=== PATIENT | male | born 1960 | race Caucasian/White ===

== ENCOUNTER 2020-03-15 21:10 | Emergency (ER) | payer OTHER ==
[2020-03-15] MEDS ORDERED: KETOROLAC 30 MG/ML 1 ML VIAL IVP STA (21:52)
[2020-03-15] MEDS ORDERED: SODIUM CHLORIDE 0.9% 1,000 ML IV ONE (21:53)
[2020-03-15 22:24] LABS: Basophils % (A) 1 %; Eosinophils # (A) 0.1 k/uL (0-0.7); Eosinophils % (A) 1 %; HCT 42.9 % (39.0-53.0); HGB 14.8 gm/dL (13.0-17.5); Lymphocytes # (A) 1.5 k/uL (1.0-4.8); Lymphocytes % (A) 22 %; MCH 30.8 pg (25.0-35.0); MCHC 34.5 g/dL (31.0-37.0); MCV 89.1 fL (80.0-100.0); Mean Platelet Volume 6.7; Monocytes # (A) 0.5 k/uL (0-1.0); Monocytes % (A) 8 %; Neutrophils # (A) 4.5 k/uL (1.3-7.7); Neutrophils % (A) 67 %; Platelet Count 275 k/uL (150-450); RBC 4.81 m/uL (4.30-5.90); RDW 13.3 % (11.5-15.5); WBC 6.7 k/uL (3.8-10.6)
[2020-03-15 22:31] LABS: ALT 24 U/L (4-49); AST 19 U/L (17-59); African American GFR (CKD) >90 (>60 ml/min/1.73 sqM); Albumin 4.4 g/dL (3.5-5.0); Alkaline Phosphatase 70 U/L (38-126); Anion Gap 7 mmol/L; Blood Urea Nitrogen 22 mg/dL (9-20); Calcium 10.5 mg/dL (8.4-10.2); Carbon Dioxide 24 mmol/L (22-30); Chloride 106 mmol/L (98-107); Glucose 96 mg/dL (74-99); Non-African American GFR(CKD) >90 (>60 ml/min/1.73 sqM); Potassium 3.9 mmol/L (3.5-5.1); Sodium 137 mmol/L (137-145); Total Bilirubin 0.3 mg/dL (0.2-1.3)
--- NOTE | 2020-03-16 00:25 | US ---
EXAMINATION TYPE: US venous doppler duplex UE LT DATE OF EXAM: 03/16/2020 COMPARISON: NONE CLINICAL HISTORY: Left arm swelling, pain. Left arm swelling and pain x 3 days. No hx of DVT. Patient takes aspirin. SIDE PERFORMED: Left Left Arm: There appear to be internal echoes within the non-compressible left basilic vein. There pradip ear to be some internal echoes within the lower IJV, but this vein does appear to show color flow and compress. No evidence of DVT in remaining veins imaged in the left arm at this time. IMPRESSION: There is some limited superficial vein thrombus in the left basilic vein. No evidence of deep vein th rombosis in the left arm.
[2020-03-16] MEDS ORDERED: cefTRIAXone IN SWFI 1,000 MG/10 ML SYRINGE IVP STA (00:46)
--- NOTE | 2020-03-16 00:46 | ED ---
Skin/Abscess/FB HPI - General Chief complaint: Skin/Abscess/Foreign Body Stated complaint: Arm Swelling/poss infection Time Seen by Provider: 03/15/20 21:25 Source: patient, family Mode of arrival: ambulatory Limitations: no limitations - History of Present Illness Initial comments: 59-year-old male patient presents to the emergency department today for evaluation of swelling and redness to the left arm. Patient states he was in the hospital over the weekend for ocular migraine. Patient states after discharge the area where his IV was inserted became red and hardened. Patient states that over the following 2 days the redness and swelling increased. States the area is hot to touch. Denies any fever or chills. Denies any generalized arm swelling. Patient also reports an odd pain in his chest just prior to arrival. He describes it as a "twinge" that went away almost immediately. Patient denies any recent rash, cough, shortness of breath, a bdominal pain, nausea, vomiting, diarrhea, constipation, back pain, numbness, tingling, dizziness, weakness, hematuria, dysuria, urinary urgency, urinary frequency, headache, visual changes, or any other complaints. - Related Data Previous Rx's Medication Instructions Recorded Ibuprofen [Motrin] 600 mg PO Q8HR PRN #30 tab 03/16/20 Allergies Allergy/AdvReac Type Severity Reaction Status Date / Time No Known Allergies Allergy Verified 03/15/20 21:20 Review of Systems ROS Statement: Those systems with pertinent positive or pertinent negative responses have been documented in the HPI. ROS Other: All systems not noted in ROS Statement are negative. Past Medical History Past Medical History: No Reported History History of Any Multi-Drug Resistant Organisms: None Reported Past Surgical History: No Surgical Hx Reported Past Psychological History: No Psychological Hx Reported Smoking Status: Never smoker Past Alcohol Use History: Occasional Past Drug Use History: None Reported General Exam Limitations: no limitations General appearance: alert, in no apparent distress, other (This is a well- developed, well-nourished adult male patient in no acute distress. Vital signs upon presentation are temperature 99.1F, pulse 80, respirations 20, blood pressure 169/94, pulse ox 97% on room air.) Eye exam: Present: normal appearance, PERRL, EOMI. Absent: scleral icterus, conjunctival injection, periorbital swelling ENT exam: Present: normal exam, normal oropharynx, mucous membranes moist Respiratory exam: Present: normal lung sounds bilaterally. Absent: respiratory distress, wheezes, rales, rhonchi, stridor Cardiovascular Exam: Present: regular rate, normal rhythm, normal heart sounds. Absent: systolic murmur, diastolic murmur, rubs, gallop, clicks GI/Abdominal exam: Present: soft, normal bowel sounds. Absent: distended, tenderness, guarding, rebound, rigid Extremities exam: Present: full ROM, tenderness (Left medial upper arm), normal capillary refill, other (There is erythema and soft tissue swelling over the left medial antecubital fossa extending up the medial upper arm. remainder of arm is pink, warm, dry. Cap refills less than 3 seconds. Radial pulses are 2+.). Absent: normal inspection, pedal edema, joint swelling, calf tenderness Neurological exam: Present: alert, oriented X3, CN II-XII intact Psychiatric exam: Present: normal affect, normal mood Skin exam: Present: warm, dry, intact, normal color. Absent: rash Course Vital Signs 03/15/20 21:15 Temperature 99.1 F Pulse Rate 80 Respiratory 20 Rate Blood Pressure 169/94 O2 Sat by Pulse 97 Oximetry Medical Decision Making - Medical Decision Making 59-year-old male patient presented to the emergency department today for evaluation of redness, swelling, pain to the left upper arm. Physical examination did reveal an area of erythema with soft tissue swelling noted to the left medial antecubital fossa and extending to the upper arm. He is afebrile, vital signs. Labs reviewed and revealed normal white blood cell count, normal lactic acid. Ultrasound of the left upper arm is positive for superficial venous thrombophlebitis, no evidence for DVT. Patient does already taking Keflex (started Thursday) and clindamycin (started today) from his physician. We will continue this treatment and add ibuprofen for treatment of the superficial venous thrombophlebitis. He is instructed to follow-up with his primary care physician for recheck in 1-2 days. Return parameters were discussed in detail. He verbalizes understanding and agrees with this plan. - Lab Data Result diagrams: 03/15/20 22:00 03/15/20 22:00 Lab Results 03/15/20 03/15/20 03/15/20 Range/Units 22:00 22:00 22:00 WBC 6.7 (3.8-10.6) k/uL RBC 4.81 (4.30-5.90) m/uL Hgb 14.8 (13.0-17.5) gm/dL Hct 42.9 (39.0-53.0) % MCV 89.1 (80.0-100.0) fL MCH 30.8 (25.0-35.0) pg MCHC 34.5 (31.0-37.0) g/dL RDW 13.3 (11.5-15.5) % Plt Count 275 (150-450) k/uL Neutrophils % 67 % Lymphocytes % 22 % Monocytes % 8 % Eosinophils % 1 % Basophils % 1 % Neutrophils # 4.5 (1.3-7.7) k/uL Lymphocytes # 1.5 (1.0-4.8) k/uL Monocytes # 0.5 (0-1.0) k/uL Eosinophils # 0.1 (0-0.7) k/uL Basophils # 0.0 (0-0.2) k/uL Sodium 137 (137-145) mmol/L Potassium 3.9 (3.5-5.1) mmol/L Chloride 106 (98-107) mmol/L Carbon Dioxide 24 (22-30) mmol/L Anion Gap 7 mmol/L BUN 22 H (9-20) mg/dL Creatinine 0.79 (0.66-1.25) mg/dL Est GFR (CKD-EPI)AfAm >90 (>60 ml/min/1.73 sqM) Est GFR (CKD-EPI)NonAf >90 (>60 ml/min/1.73 sqM) Glucose 96 (74-99) mg/dL Plasma Lactic Acid William 0.9 (0.7-2.0) mmol/L Calcium 10.5 H (8.4-10.2) mg/dL Total Bilirubin 0.3 (0.2-1.3) mg/dL AST 19 (17-59) U/L ALT 24 (4-49) U/L Alkaline Phosphatase 70 (38-126) U/L Troponin I (0.000-0.034) ng/mL Total Protein 7.0 (6.3-8.2) g/dL Albumin 4.4 (3.5-5.0) g/dL 03/15/20 Range/Units 22:00 WBC (3.8-10.6) k/uL RBC (4.30-5.90) m/uL Hgb (13.0-17.5) gm/dL Hct (39.0-53.0) % MCV (80.0-100.0) fL MCH (25.0-35.0) pg MCHC (31.0-37.0) g/dL RDW (11.5-15.5) % Plt Count (150-450) k/uL Neutrophils % % Lymphocytes % % Monocytes % % Eosinophils % % Basophils % % Neutrophils # (1.3-7.7) k/uL Lymphocytes # (1.0-4.8) k/uL Monocytes # (0-1.0) k/uL Eosinophils # (0-0.7) k/uL Basophils # (0-0.2) k/uL Sodium (137-145) mmol/L Potassium (3.5-5.1) mmol/L Chloride (98-107) mmol/L Carbon Dioxide (22-30) mmol/L Anion Gap mmol/L BUN (9-20) mg/dL Creatinine (0.66-1.25) mg/dL Est GFR (CKD-EPI)AfAm (>60 ml/min/1.73 sqM) Est GFR (CKD-EPI)NonAf (>60 ml/min/1.73 sqM) Glucose (74-99) mg/dL Plasma Lactic Acid William (0.7-2.0) mmol/L Calcium (8.4-10.2) mg/dL Total Bilirubin (0.2-1.3) mg/dL AST (17-59) U/L ALT (4-49) U/L Alkaline Phosphatase (38-126) U/L Troponin I <0.012 (0.000-0.034) ng/mL Total Protein (6.3-8.2) g/dL Albumin (3.5-5.0) g/dL - Radiology Data Radiology results: report reviewed Doppler of the left upper extremity is obtained. Report was reviewed in its entirety. Impression by Dr. Morin shows limited superficial vein thrombosis in the left basilic vein. No evidence of deep pain thrombosis in the left arm. Disposition Clinical Impression: Left arm cellulitis, Superficial thrombophlebitis of left upper extremity Disposition: HOME SELF-CARE Condition: Good Instructions (If sedation given, give patient instructions): Cellulitis (ED), Superficial Thrombophlebitis (ED) Additional Instructions: Apply warm compresses over the left arm site. Take Ibuprofen three times daily for pain relief and decrease of inflammation. Complete all antibiotic p rescriptions in full. Follow up with your primary care physician for recheck in 1-2 days. Return to the emergency for evaluation of a new, worsening, or concerning symptoms. Prescriptions: Ibuprofen [Motrin] 600 mg PO Q8HR PRN #30 tab PRN Reason: Pain Is patient prescribed a controlled substance at d/c from ED?: No Referrals: Adi Johnson MD [Primary Care Provider] - 1-2 days Time of Disposition: 00:46
[2020-03-16 01:10] VITALS: BP 148/97; PULSE 69; RESP 17; TEMP 97.9
== END 2020-03-16 01:14 | disposition home or self-care (01) ==
LOC: EC 21:10
DX: L03.114 Cellulitis of left upper limb (principal); I82.612 Acute embolism and thrombosis of superficial veins of left upper extremity
CPT/HCPCS: 36415; 80053; 83605; 84484; 85025; 87040; 93971; 99284; 96374; 96375; 96361; J0696; J1885

== ENCOUNTER 2020-03-20 19:25 | Emergency (ER) | payer OTHER ==
[2020-03-20 19:33] VITALS: RESP 18; TEMP 98.5
--- NOTE | 2020-03-20 20:07 | ED ---
General Adult HPI - General Source: patient Mode of arrival: ambulatory Limitations: no limitations <Valeria Jules - Last Filed: 03/21/20 00:46> <Aidee Bill - Last Filed: 03/29/20 16:02> - General Chief complaint: Extremity Problem,Nontraumatic Stated complaint: Possible blood clot Time Seen by Provider: 03/20/20 19:38 - History of Present Illness Initial comments: 59-year-old male patient presents to the emergency department today for evaluation of swelling and redness to the left medial thigh. Patient states that he noticed the area becoming tender this morning and he developed redness and induration to the area throughout the day today. Denies any fever or chills. Patient is recently treated for superficial thrombophlebitis of the left arm with surrounding cellulitis is improving. Patient is still taking antibiotics for this. He is also reporting lower extremity edema. He denies any chest pain or trouble breathing. Denies any fever or chills. Denies history of DVT. Patient denies any recent rash, cough, abdominal pain, nausea, vomiting, diarrhea, constipation, back pain, numbness, tingling, dizziness, weakness, hematuria, dysuria, urinary urgency, urinary frequency, headache, visual changes, or any other complaints. (Valeria Jules) - Related Data Previous Rx's Medication Instructions Recorded Ibuprofen [Motrin] 600 mg PO Q8HR PRN #30 tab 03/16/20 Aspirin EC [Ecotrin Low Dose] 81 mg PO DAILY #30 tablet. 03/20/20 Apixaban [Eliquis Starter Pack 0 mg PO DIRECTED 30 Days #1 pack 03/26/20 (for VTE)] Apixaban [Eliquis] 0 mg PO DIRECTED #74 tablet 03/27/20 Allergies Allergy/AdvReac Type Severity Reaction Status Date / Time clindamycin Allergy Swelling Verified 03/26/20 20:21 Review of Systems ROS Other: All systems not noted in ROS Statement are negative. <Valeria Jules - Last Filed: 03/21/20 00:46> ROS Other: All systems not noted in ROS Statement are negative. <Aidee Bill - Last Filed: 03/29/20 16:02> ROS Statement: Those systems with pertinent positive or pertinent negative responses have been documented in the HPI. Past Medical History Past Medical History: No Reported History History of Any Multi-Drug Resistant Organisms: None Reported Past Surgical History: No Surgical Hx Reported Past Psychological History: No Psychological Hx Reported Smoking Status: Never smoker Past Alcohol Use History: Occasional Past Drug Use History: None Reported <Valeria Jules Jessy - Last Filed: 03/21/20 00:46> General Exam Limitations: no limitations General appearance: alert, in no apparent distress, other (This is a well- developed, well-nourished adult male patient in no acute distress. Vital signs upon presentation are temperature 98.5F, pulse 83, respirations 18, blood pressure 162/90, pulse ox 97% on room air.) Eye exam: Present: normal appearance, PERRL, EOMI. Absent: scleral icterus, conjunctival injection, periorbital swelling ENT exam: Present: normal exam, normal oropharynx, mucous membranes moist Respiratory exam: Present: normal lung sounds bilaterally. Absent: respiratory distress, wheezes, rales, rhonchi, stridor Cardiovascular Exam: Present: regular rate, normal rhythm, normal heart sounds. Absent: systolic murmur, diastolic murmur, rubs, gallop, clicks Extremities exam: Present: full ROM, tenderness (Left medial thigh), normal capillary refill, other (There is area of erythema to the left medial thigh with surrounding erythema. There is linear area of induration underlying the erythema. There is also generalized edema to the lower extremities, this is not pitting. Skin is otherwise pink, warm, dry. Cap refills less than 3 seconds. Pedal pulses 2+ and equal bilaterally.). Absent: normal inspection, pedal edema, joint swelling, calf tenderness Neurological exam: Present: alert, oriented X3, CN II-XII intact Psychiatric exam: Present: normal affect, normal mood Skin exam: Present: warm, dry, intact, normal color. Absent: rash <Valeria Jules - Last Filed: 03/21/20 00:46> Course Vital Signs 03/20/20 03/20/20 19:31 21:31 Temperature 98.5 F Pulse Rate 83 77 Respiratory 18 18 Rate Blood Pressure 162/90 138/76 O2 Sat by Pulse 97 96 Oximetry Medical Decision Making - Radiology Data Radiology results: report reviewed, image reviewed <Valeria Jules - Last Filed: 03/21/20 00:46> <Aidee Bill - Last Filed: 03/29/20 16:02> - Medical Decision Making 59-year-old male patient presents to the emergency department today for evaluation of redness, swelling to the left medial thigh. Patient states this started early this morning and has been worsening throughout the day. Patient was recently treated for a superficial thrombophlebitis of the left upper arm related to an IV insertion. Ultrasound of the left leg was obtained and showed superficial thrombophlebitis of the greater saphenous vein. I did discuss the results with the vascular specialist Dr. Osorio. She recommends starting a baby aspirin daily and follow up in her office next week. Patient was educated regarding application of warm compresses and aspirin use. He'll be discharged to follow-up with his primary care physician for recheck in 1-2 days. Return parameters discussed in detail. He verbalizes understanding and agrees this plan. (Valeria Jules) I was available for consultation in the emergency department. The history and physical exam were done by the midlevel provider. I was consulted for this patients care. I reviewed the case with the midlevel provider and based on their presentation of the patient, I agree with the assessment, medical decision making and plan of care as documented. Chart was dictated using A2[employer] dictation software. Attempts were made to correct any dictation errors however some typographical errors may persist. Patient was seen during a national state of emergency due to the Covid-19 pandemic. (Aidee Bill) - Radiology Data Ultrasound of the left lower extremity was obtained. Report was reviewed in its entirety. Impression by Dr. Morin shows some superficial vein thrombosis in the long saphenous vein. No evidence of deep vein thrombosis. (Valeria Jules) Disposition Is patient prescribed a controlled substance at d/c from ED?: No Time of Disposition: 21:18 <Valeria Jules - Last Filed: 03/21/20 00:46> <Aidee Bill - Last Filed: 03/29/20 16:02> Clinical Impression: Superficial thrombophlebitis of left leg Disposition: HOME SELF-CARE Condition: Good Instructions (If sedation given, give patient instructions): Superficial Thrombophlebitis (ED) Additional Instructions: Start taking a baby aspirin daily. Did send a prescription of this year pharmacy. Apply warm compresses to the area. Follow-up with the vascular specialist for further evaluation next week. Follow-up through primary care physician for recheck in 1-2 days. Return to the emergency department immediately for any new, worsening, or concerning symptoms. Prescriptions: Aspirin EC [Ecotrin Low Dose] 81 mg PO DAILY #30 tablet.dr Referrals: Jeri Osorio DO [STAFF PHYSICIAN] - 1-2 days Adi Johnson MD [Primary Care Provider] - 1-2 days
--- NOTE | 2020-03-20 20:48 | US ---
EXAMINATION TYPE: US venous doppler duplex LE LT DATE OF EXAM: 03/20/2020 8:25 PM COMPARISON: NONE, Upper Extremity Venous US CLINICAL HISTORY: Left leg swelling, area of redness, induration. Left leg swelling x 1 day. Hx of ellington perficial clot in arm. SIDE PERFORMED: Left TECHNIQUE: The lower extremity deep venous system is examined utilizing real time linear array sonog rafita with graded compression, doppler sonography and color-flow sonography. VESSELS IMAGED: External Iliac Vein (EIV) Common Femoral Vein Deep Femoral Vein Greater Saphenous Vein * Femoral Vein Popliteal Vein Small Saphenous Vein * Proximal Calf Veins (* superficial vessels) Left Leg: No evidence of DVT in veins imaged at this time from prox calf veins to EIV. At the area o f concern/redness left medial lower thigh, there appears to be a noncompressible branch of the greate r saphenous vein. Color flow is seen in the GSV at the groin but not in this segment at the lower thi gh above the knee. IMPRESSION: There is some superficial vein thrombosis in the long saphenous vein which is not pain. No evidence o f deep vein thrombosis.
[2020-03-20 21:32] VITALS: BP 138/76; PULSE 77
== END 2020-03-20 21:41 | disposition home or self-care (01) ==
LOC: EC 19:25
DX: I80.02 Phlebitis and thrombophlebitis of superficial vessels of left lower extremity (principal); L03.114 Cellulitis of left upper limb; Z88.1 Allergy status to other antibiotic agents
CPT/HCPCS: 99283

== ENCOUNTER 2020-03-26 20:02 | Emergency (ER) | payer OTHER ==
[2020-03-26 20:21] VITALS: PULSE 86; RESP 18; TEMP 98.6
--- NOTE | 2020-03-26 21:16 | US ---
EXAMINATION TYPE: US venous doppler duplex LE LT DATE OF EXAM: 03/26/2020 9:04 PM COMPARISON: 03/20/2020 CLINICAL HISTORY: pain. Pain in left thigh that radiates to the groin. No hx of DVT. Hx of SVT. Patie nt is taking aspirin. SIDE PERFORMED: Left TECHNIQUE: The lower extremity deep venous system is examined utilizing real time linear array sonog rafita with graded compression, doppler sonography and color-flow sonography. VESSELS IMAGED: External Iliac Vein (EIV) Common Femoral Vein Deep Femoral Vein Greater Saphenous Vein * Femoral Vein Popliteal Vein Small Saphenous Vein * Proximal Calf Veins (* superficial vessels) Left Leg: There appears to be thrombus in the greater saphenous vein throughout the medial thigh. Th rombus seen higher in the groin compared to previous exam. Vessel does not appear to compress. No juanjose dence of DVT in veins imaged at this time from prox calf veins to EIV. IMPRESSION: No evidence of deep vein thrombosis. There is extensive thrombus in the long saphenous v ein. Not significantly different than old exam.
[2020-03-26] MEDS ORDERED: APIXABAN 5 MG TAB PO STA (22:25)
--- NOTE | 2020-03-26 22:28 | ED ---
Extremity Problem HPI - General Chief complaint: Extremity Problem,Nontraumatic Stated complaint: L Leg Blood Clot Time Seen by Provider: 03/26/20 22:13 Source: patient Mode of arrival: wheelchair Limitations: no limitations - History of Present Illness Initial comments: 59-year-old male patient presents to the emergency department today for evaluation of increased swelling, redness, pain to the left thigh. Patient was diagnosed with superficial thrombophlebitis to the area a few days ago. Patient states that the areas increasing in size and becoming more painful essentially with walking. He is reporting swelling to the bilateral lower extremities. This is the patient's third visit for similar complaints initially he was diagnosed with superficial thrombophlebitis to the left upper arm. Developed an area to the left thigh and had a repeat visit and was started on baby aspirin at that time. Patient was supposed to follow-up with the vascular specialist on Thursday for repeat ultrasound but symptoms worsened to the point he thought he should get checked out again today. Patient denies numbness or tingling to the lower extremities. Denies any chest pain, shortness of breath, or heart palpitations. Denies any fever or chills. Patient denies any recent rash, cough, abdominal pain, nausea, vomiting, diarrhea, constipation, back pain, numbness, tingling, dizziness, weakness, hematuria, dysuria, urinary urgency, urinary frequency, headache, visual changes, or any other complaints. - Related Data Previous Rx's Medication Instructions Recorded RX: Ibuprofen [Motrin] 600 mg PO Q8HR PRN #30 tab 03/16/20 RX: Aspirin EC [Ecotrin Low Dose] 81 mg PO DAILY #30 tablet. 03/20/20 Apixaban [Eliquis Starter Pack 0 mg PO DIRECTED 30 Days #1 pack 03/26/20 (for VTE)] Allergies Allergy/AdvReac Type Severity Reaction Status Date / Time clindamycin Allergy Swelling Verified 03/26/20 20:21 Review of Systems ROS Statement: Those systems with pertinent positive or pertinent negative responses have been documented in the HPI. ROS Other: All systems not noted in ROS Statement are negative. Past Medical History Past Medical History: No Reported History History of Any Multi-Drug Resistant Organisms: None Reported Past Surgical History: No Surgical Hx Reported Past Psychological History: No Psychological Hx Reported Smoking Status: Never smoker Past Alcohol Use History: Occasional Past Drug Use History: None Reported General Exam Limitations: no limitations General appearance: alert, in no apparent distress, other (This is a well- developed, well-nourished adult male patient in no acute distress. Vital signs upon presentation are temperature 98.6F, pulse 86, respirations 18, blood pressure 145/88, pulse ox 97% on room air.) Eye exam: Present: normal appearance, PERRL, EOMI. Absent: scleral icterus, conjunctival injection, periorbital swelling ENT exam: Present: normal exam, normal oropharynx, mucous membranes moist Respiratory exam: Present: normal lung sounds bilaterally. Absent: respiratory distress, wheezes, rales, rhonchi, stridor Cardiovascular Exam: Present: regular rate, normal rhythm, normal heart sounds. Absent: systolic murmur, diastolic murmur, rubs, gallop, clicks Extremities exam: Present: full ROM, normal capillary refill, other (There is soft tissue swelling and erythema noted to the left medial thigh extending from the groin to the knee. There is mild generalized swelling, nonpitting. Pedal and posttibial pulses are 2+ and equal bilaterally.). Absent: tenderness, pedal edema, joint swelling, calf tenderness Neurological exam: Present: alert, oriented X3, CN II-XII intact Psychiatric exam: Present: normal affect, normal mood Skin exam: Present: warm, dry, intact, normal color. Absent: rash Course Vital Signs 03/26/20 03/26/20 20:14 22:49 Temperature 98.6 F Pulse Rate 86 Respiratory 18 Rate Blood Pressure 145/88 148/57 O2 Sat by Pulse 97 Oximetry Medical Decision Making - Medical Decision Making 59-year-old male patient presents to the emergency department today for evaluation of erythema, swelling, tenderness over the left medial thigh. Physical examination did reveal soft tissue swelling, erythema over over the medial thigh extending from the groin to the knee. Neurovascular status was otherwise intact. Ultrasound was obtained and did show superficial thrombophlebitis to the greater saphenous vein. I did speak to the geoscience laboratory technician who reports that the blood clot extends from the groin all the way to the knee. It is approximately 2 mm from the common femoral vein junction. I discussed the case with on-call vascular surgeon Dr. Escoto who recommended starting anticoagulation. Patient does have an appointment with Dr. Osorio on Thursday he is urged to keep this appointment. Patient will be started on Eliquis. Did give education regarding safe use of anticoagulants. He is instructed to follow-up with his primary care physician for recheck in 1-2 days. Return parameters were discussed in detail. He verbalizes understanding and agrees with this plan. - Radiology Data Radiology results: report reviewed Venous Doppler duplex of the left lower extremity was obtained. Report was reviewed in its entirety. Impression by Dr. Morin shows no evidence of deep vein thrombosis. There is extensive thrombus in the long saphenous vein. Not significantly different than old exam. Disposition Clinical Impression: Superficial thrombophlebitis of left leg Disposition: HOME SELF-CARE Condition: Good Instructions (If sedation given, give patient instructions): Superficial Thrombophlebitis (ED), Safe Use of Anticoagulants (ED) Additional Instructions: Start eliquis. Take as directed. Follow up with Dr. Osorio on Thursday. Return to the emergency department immediately for any new, worsening, or concerning symptoms. Prescriptions: Apixaban [Eliquis Starter Pack (for VTE)] 0 mg PO DIRECTED 30 Days #1 pack Is patient prescribed a controlled substance at d/c from ED?: No Referrals: Adi Johnson MD [Primary Care Provider] - 1-2 days Jeri Osorio DO [STAFF PHYSICIAN] - 1-2 days Time of Disposition: 22:28
[2020-03-26 22:50] VITALS: BP 148/57
== END 2020-03-26 22:50 | disposition home or self-care (01) ==
LOC: EC 20:02
DX: I80.02 Phlebitis and thrombophlebitis of superficial vessels of left lower extremity (principal); Z88.1 Allergy status to other antibiotic agents
CPT/HCPCS: 99283

== ENCOUNTER 2020-07-17 14:48 | Observation (INO) | payer OTHER ==
--- NOTE | 2020-07-17 15:15 | ED ---
General Adult HPI - General Chief complaint: Chest Pain Stated complaint: Chest Pressure Time Seen by Provider: 07/17/20 15:00 Source: patient Mode of arrival: wheelchair Limitations: no limitations - History of Present Illness Initial comments: Dictation was produced using [employer] dictation software. please excuse any grammatical, word or spelling errors. This patient was cared for during a federal and state declared state of emergency secondary to Covid 19 Chief Complaint: 60-year-old male presents with chest ache left lower extremity symptoms History of Present Illness: 60-year-old male he was diagnosed with DVT sometime last year. Patient currently on prophylactic dose of Xarelto. He was discovered to have a history of factor V Leiden deficiency. Patient also has a chest ache to the substernal area. Patient states that the symptoms does not radiate to the jaw or the shoulders. He's been feeling kind of under the we ather recently thought that perhaps he was coming down with a cold. Does complain of some mild dizziness. Does not have any shortness of breath. Patient does complain of some medial thigh pain that has been ongoing since yesterday. No symptoms while he was at work yesterday. Denies any cough. No fever or constitutional symptoms. The ROS documented in this emergency department record has been reviewed and confirmed by me. Those systems with pertinent positive or negative responses have been documented in the HPI. All other systems are other negative and/or noncontributory. PHYSICAL EXAM: General Impression: Alert and oriented x3, not in acute distress HEENT: Normocephalic atraumatic, extra-ocular movements intact, pupils equal and reactive to light bilaterally, mucous membranes moist. Cardiovascular: Heart regular rate and rhythm Chest: Able to complete full sentences, no retractions, no tachypnea Abdomen: abdomen soft, non-tender, non-distended, no organomegaly Musculoskeletal: Pulses present and equal in all extremities, no peripheral edema Motor: no focal deficits noted Neurological: CN II-XII grossly intact, no focal motor or sensory deficits noted Skin: Intact with no visualized rashes Psych: Normal affect and mood ED course: 60-year-old male presents with atypical chest pain with typical features. As upon arrival are within acceptable limits. Patient currently on prophylactic Xarelto dose. He also has left lower extremity symptoms as well. He denies any shortness of breath. His chest pain is not pleuritic. Laboratory evaluation obtained. CBC unremarkable. Coag panel is negative. D- dimer is negative. Metabolic panel is negative. First troponin is negative. Chest x-ray and venous Doppler study of the left lower extremity is unremarkable. Patient be admitted to observation for atypical chest pain typical features. Patient given aspirin. Case was discussed with Dr. Saxena who is willing to accept patients care. Cardiology will be consulted. EKG interpretation: Ventricular rate 71, normal sinus rhythm,. 170, QRS 90, QTC 419. No [place] prolongation, no QTC prolongation, no ST or T-wave changes noted. EKG compared to 05/22/2020 showing no changes. Overall, this EKG is unremarkable - Related Data Previous Rx's Medication Instructions Recorded Ibuprofen [Motrin] 600 mg PO Q8HR PRN #30 tab 03/16/20 Aspirin EC [Ecotrin Low Dose] 81 mg PO DAILY #30 tablet. 03/20/20 Apixaban [Eliquis Starter Pack 0 mg PO DIRECTED 30 Days #1 pack 03/26/20 (for VTE)] Apixaban [Eliquis] 0 mg PO DIRECTED #74 tablet 03/27/20 Allergies Allergy/AdvReac Type Severity Reaction Status Date / Time apixaban [From Eliquis] Allergy Chest Pain Verified 07/17/20 16:33 clindamycin Allergy Swelling Verified 07/17/20 16:33 Review of Systems ROS Statement: Those systems with pertinent positive or pertinent negative responses have been documented in the HPI. ROS Other: All systems not noted in ROS Statement are negative. Past Medical History Past Medical History: Deep Vein Thrombosis (DVT) Additional Past Medical History / Comment(s): Blood clots, factor 5 History of Any Multi-Drug Resistant Organisms: None Reported Past Surgical History: No Surgical Hx Reported Past Psychological History: No Psychological Hx Reported Smoking Status: Never smoker Past Alcohol Use History: Occasional Past Drug Use History: None Reported General Exam Limitations: no limitations Course Vital Signs 07/17/20 14:50 Temperature 97.9 F Pulse Rate 79 Respiratory 20 Rate Blood Pressure 177/93 O2 Sat by Pulse 98 Oximetry Medical Decision Making - Lab Data Result diagrams: 07/17/20 15:26 07/17/20 15:26 Lab Results 07/17/20 07/17/20 07/17/20 Range/Units 15:26 15:26 15:26 WBC 6.0 (3.8-10.6) k/uL RBC 5.23 (4.30-5.90) m/uL Hgb 16.1 (13.0-17.5) gm/dL Hct 47.3 (39.0-53.0) % MCV 90.6 (80.0-100.0) fL MCH 30.9 (25.0-35.0) pg MCHC 34.1 (31.0-37.0) g/dL RDW 13.0 (11.5-15.5) % Plt Count 281 (150-450) k/uL Neutrophils % 73 % Lymphocytes % 18 % Monocytes % 6 % Eosinophils % 2 % Basophils % 0 % Neutrophils # 4.4 (1.3-7.7) k/uL Lymphocytes # 1.1 (1.0-4.8) k/uL Monocytes # 0.4 (0-1.0) k/uL Eosinophils # 0.1 (0-0.7) k/uL Basophils # 0.0 (0-0.2) k/uL PT 9.8 (9.0-12.0) sec INR 0.9 (<1.2) APTT 23.2 (22.0-30.0) sec D-Dimer 0.28 (<0.60) mg/L FEU Sodium 138 (137-145) mmol/L Potassium 4.2 (3.5-5.1) mmol/L Chloride 107 (98-107) mmol/L Carbon Dioxide 23 (22-30) mmol/L Anion Gap 8 mmol/L BUN 17 (9-20) mg/dL Creatinine 1.03 (0.66-1.25) mg/dL Est GFR (CKD-EPI)AfAm >90 (>60 ml/min/1.73 sqM) Est GFR (CKD-EPI)NonAf 80 (>60 ml/min/1.73 sqM) Glucose 110 H (74-99) mg/dL Calcium 10.9 H (8.4-10.2) mg/dL Magnesium 2.3 (1.6-2.3) mg/dL Total Bilirubin 0.5 (0.2-1.3) mg/dL AST 26 (17-59) U/L ALT 30 (4-49) U/L Alkaline Phosphatase 74 (38-126) U/L Troponin I (0.000-0.034) ng/mL Total Protein 7.4 (6.3-8.2) g/dL Albumin 4.5 (3.5-5.0) g/dL 20/20 Range/Units 15:26 WBC (3.8-10.6) k/uL RBC (4.30-5.90) m/uL Hgb (13.0-17.5) gm/dL Hct (39.0-53.0) % MCV (80.0-100.0) fL MCH (25.0-35.0) pg MCHC (31.0-37.0) g/dL RDW (11.5-15.5) % Plt Count (150-450) k/uL Neutrophils % % Lymphocytes % % Monocytes % % Eosinophils % % Basophils % % Neutrophils # (1.3-7.7) k/uL Lymphocytes # (1.0-4.8) k/uL Monocytes # (0-1.0) k/uL Eosinophils # (0-0.7) k/uL Basophils # (0-0.2) k/uL PT (9.0-12.0) sec INR (<1.2) APTT (22.0-30.0) sec D-Dimer (<0.60) mg/L FEU Sodium (137-145) mmol/L Potassium (3.5-5.1) mmol/L Chloride (98-107) mmol/L Carbon Dioxide (22-30) mmol/L Anion Gap mmol/L BUN (9-20) mg/dL Creatinine (0.66-1.25) mg/dL Est GFR (CKD-EPI)AfAm (>60 ml/min/1.73 sqM) Est GFR (CKD-EPI)NonAf (>60 ml/min/1.73 sqM) Glucose (74-99) mg/dL Calcium (8.4-10.2) mg/dL Magnesium (1.6-2.3) mg/dL Total Bilirubin (0.2-1.3) mg/dL AST (17-59) U/L ALT (4-49) U/L Alkaline Phosphatase (38-126) U/L Troponin I <0.012 (0.000-0.034) ng/mL Total Protein (6.3-8.2) g/dL Albumin (3.5-5.0) g/dL Disposition Clinical Impression: Chest pain Disposition: ADMITTED IP TO THIS HOSP Condition: Fair Referrals: Adi Johnson MD [Primary Care Provider] - 1-2 days Decision Time: 16:35
[2020-07-17 15:41] LABS: Basophils % (A) 0 %; Eosinophils # (A) 0.1 k/uL (0-0.7); Eosinophils % (A) 2 %; HCT 47.3 % (39.0-53.0); HGB 16.1 gm/dL (13.0-17.5); Lymphocytes # (A) 1.1 k/uL (1.0-4.8); Lymphocytes % (A) 18 %; MCH 30.9 pg (25.0-35.0); MCHC 34.1 g/dL (31.0-37.0); MCV 90.6 fL (80.0-100.0); Mean Platelet Volume 6.8; Monocytes # (A) 0.4 k/uL (0-1.0); Monocytes % (A) 6 %; Neutrophils # (A) 4.4 k/uL (1.3-7.7); Neutrophils % (A) 73 %; Platelet Count 281 k/uL (150-450); RBC 5.23 m/uL (4.30-5.90)
--- NOTE | 2020-07-17 15:43 | XR ---
EXAMINATION TYPE: XR chest 2V DATE OF EXAM: 07/17/2020 COMPARISON: NONE HISTORY: Chest pain and pressure. TECHNIQUE: Frontal and lateral views of the chest are obtained. FINDINGS: There is focal lingular consolidation and/or atelectatic change on both views. Right lung is clear. No pleural effusion or pneumothorax seen bilaterally. The cardiac silhouette size is within normal limits. Overlying EKG leads. The osseous structures are intact. IMPRESSION: Focal lingular consolidation and/or atelectatic change.
[2020-07-17 15:48] LABS: ALT 30 U/L (4-49); AST 26 U/L (17-59); African American GFR (CKD) >90 (>60 ml/min/1.73 sqM); Albumin 4.5 g/dL (3.5-5.0); Alkaline Phosphatase 74 U/L (38-126); Anion Gap 8 mmol/L; Blood Urea Nitrogen 17 mg/dL (9-20); Calcium 10.9 mg/dL (8.4-10.2); Carbon Dioxide 23 mmol/L (22-30); Chloride 107 mmol/L (98-107); Glucose 110 mg/dL (74-99); Magnesium 2.3 mg/dL (1.6-2.3); Non-African American GFR(CKD) 80 (>60 ml/min/1.73 sqM); Potassium 4.2 mmol/L (3.5-5.1); Sodium 138 mmol/L (137-145); Total Bilirubin 0.5 mg/dL (0.2-1.3); Total Protein 7.4 g/dL (6.3-8.2)
[2020-07-17 15:55] LABS: D-Dimer 0.28 mg/L FEU (<0.60); INR 0.9 (<1.2); Partial Thromboplastin Time 23.2 sec (22.0-30.0); Prothrombin Time 9.8 sec (9.0-12.0)
--- NOTE | 2020-07-17 16:16 | US ---
EXAMINATION TYPE: US venous doppler duplex LE LT DATE OF EXAM: 07/17/2020 4:06 PM COMPARISON: US May 22, 2020 CLINICAL HISTORY: dvt symptoms. Pt states left leg pain SIDE PERFORMED: Left TECHNIQUE: The lower extremity deep venous system is examined utilizing real time linear array sonog rafita with graded compression, doppler sonography and color-flow sonography. VESSELS IMAGED: External Iliac Vein (EIV) Common Femoral Vein Deep Femoral Vein Greater Saphenous Vein * Femoral Vein Popliteal Vein Small Saphenous Vein * Proximal Calf Veins (* superficial vessels) Left Leg: Negative for DVT Grayscale, color doppler, spectral doppler imaging performed of the deep veins of the left lower extr emity. There is normal flow, compressibility, vascular waveforms. IMPRESSION: No ultrasound evidence for acute DVT in the left lower extremity. No significant change from prior.
[2020-07-17] MEDS ORDERED: NITROGLYCERIN SL TABS 0.4 MG TAB SUBLINGUAL PRN (16:32)
[2020-07-17] MEDS ORDERED: ASPIRIN 81 MG PO STA (16:32)
[2020-07-17] MEDS: RIVAROXABAN 2.5 MG TABLET PO SCH (19:12)
[2020-07-18] MEDS: RIVAROXABAN 2.5 MG TABLET PO SCH (06:12)
[2020-07-18 07:59] LABS: Cholesterol 271 mg/dL (<200); HDL Cholesterol 45 mg/dL (40-60); LDL Cholesterol,Calculated 176 mg/dL (0-99); Triglycerides 250 mg/dL (<150)
[2020-07-18] MEDS ORDERED: ASPIRIN 325 MG TAB PO SCH (09:00)
[2020-07-18] MEDS ORDERED: AMINOPHYLLINE 500 MG/20 ML VIAL IV PRN (09:24)
[2020-07-18] MEDS ORDERED: CAFFEINE CITRATE 60 MG/3 ML VIAL IV PRN (09:24)
[2020-07-18] MEDS ORDERED: REGADENOSON 0.4 MG/5 ML SYRINGE IV ONE (09:24)
--- NOTE | 2020-07-18 09:45 | P.CRDCN ---
History of Present Illness History of present illness: CHIEF COMPLAINT: Chest pain HISTORY OF PRESENT ILLNESS: This is a 60-year old male with a past medical history significant for DVT. 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 We have been asked to see the patient in consultation for chest pain. Patient examined this morning at the bedside. Patient states he started to feel pressure in his head yesterday. He checked his blood pressure and it was found to be elevated at 191/101. He states he began to have some chest tightness in the mid sternal region and then a dull ache followed. He was watching TV when the pain occured. He denies shortness of breath. Denies nausea or vomiting. Denies any diaphoresis. Patient states pain lasted for approximately 2 hours and then went away on its own. He does report some back pain along with this. 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 Patient reports a history of DVT and is on Xarelto. He sees Dr. Osorio outpatient in regards to this. Patient states he had a stress test greater than 5 years ago but states it was normal to his knowledge. DIAGNOSTICS: EKG reveals sinus rhythm Chest xray focal lingular consolidation and/or atelectatic changes Laboratory data: WBC 6.0. Hemoglobin 16.1. Platelet count 281. D-dimer 0.28. Sodium 138. Potassium 4.2. BUN 17. Creatinine 1.03. Troponin negative 3. LDL 176. Current home cardiac medications include Xarelto 2.5 mg twice a day REVIEW OF SYSTEMS: At the time of my exam: CONSTITUTIONAL: Denies fever or chills. HEENT: Denies blurred vision, vision changes, or eye pain. Denies hemoptysis CARDIOVASCULAR: Denies chest pain, orthopnea, PND or palpitations RESPIRATORY: No shortness of breath. GASTROINTESTINAL: Denies abdominal pain. Denies nausea or vomiting. HEMATOLOGIC: Denies bleeding disorders. GENITOURINARY: Denies any blood in urine. SKIN: Denies pruitis. Denies rash. PHYSICAL EXAM: VITAL SIGNS: Reviewed. GENERAL: Well-developed in no acute distress. HEENT: Head is normocephalic. Pupils are equal, round. Sclerae anicteric. Mucous membranes of the mouth are moist. Neck supple. No JVD or thyromegaly LUNGS: Respirations even and unlabored. Lungs essentially clear to auscultation bilaterally. HEART: Regular rate and rhythm. S1 and S2 heard. ABDOMEN: Soft. Nondistended. Nontender. EXTREMITIES: Normal range of motion. No clubbing or cyanosis. Peripheral pulses intact. No lower extremity edema NEUROLOGIC: Awake and alert. Oriented x 3. ASSESSMENT: Chest pain Hypertension Hyperlipidemia History of DVT, on long-term anticoagulation with Xarelto History of factor V Leiden deficiency PLAN: Obtain 2D echo to assess cardiac structure and function Begin Lisinopril 5mg daily. Monitor blood pressure Begin atorvastatin 20 mg daily. Recommend dietary and lifestyle modifications for elevated LDL. Patient to undergo Le scan stress test today. If negative, may be discharged from a cardiac standpoint and follow up outpatient Nurse practitioner note has been reviewed by physician. Signing provider agrees with the documented findings, assessment, and plan of care. Past Medical History Past Medical History: Deep Vein Thrombosis (DVT) Additional Past Medical History / Comment(s): Blood clots, factor 5 LEFT KIDNEY CYST AND HERNIA INGUINAL History of Any Multi-Drug Resistant Organisms: None Reported Past Surgical History: No Surgical Hx Reported Past Psychological History: No Psychological Hx Reported Smoking Status: Never smoker Past Alcohol Use History: Occasional Past Drug Use History: None Reported Medications and Allergies Home Medications Medication Instructions Recorded Confirmed Type Rivaroxaban [Xarelto] 2.5 mg PO BID@0700,1900 07/17/20 07/17/20 History Allergies Allergy/AdvReac Type Severity Reaction Status Date / Time apixaban [From Eliquis] Allergy Chest Pain Verified 07/17/20 16:33 clindamycin Allergy Swelling Verified 07/17/20 16:33 Physical Exam Vitals: Vital Signs Temp Pulse Pulse Resp BP BP Pulse Ox 07/18/20 04:12 98 F 60 18 128/82 98 07/17/20 20:25 98.2 F 73 17 147/87 97 07/17/20 18:00 97.9 F 68 16 177/96 97 07/17/20 16:54 97.9 F 83 18 150/87 97 07/17/20 15:54 83 18 150/87 97 07/17/20 14:50 97.9 F 79 20 177/93 98 Intake and Output 07/17/20 07/18/20 07/18/20 22:59 06:59 14:59 Intake Total 480 Balance 480 Intake: Oral 480 Other: Voiding Method Toilet Toilet # Voids 2 Weight 104.689 kg Results 07/17/20 15:26 07/17/20 15:26 Cardiac Enzymes 07/17/20 07/17/20 07/17/20 Range/Units 15:26 15:26 18:12 AST 26 (17-59) U/L Troponin I <0.012 <0.012 (0.000-0.034) ng/mL 07/17/20 Range/Units 21:35 AST (17-59) U/L Troponin I <0.012 (0.000-0.034) ng/mL Coagulation 07/17/20 Range/Units 15:26 PT 9.8 (9.0-12.0) sec APTT 23.2 (22.0-30.0) sec CBC 07/17/20 Range/Units 15:26 WBC 6.0 (3.8-10.6) k/uL RBC 5.23 (4.30-5.90) m/uL Hgb 16.1 (13.0-17.5) gm/dL Hct 47.3 (39.0-53.0) % Plt Count 281 (150-450) k/uL Comprehensive Metabolic Panel 07/17/20 Range/Units 15:26 Sodium 138 (137-145) mmol/L Potassium 4.2 (3.5-5.1) mmol/L Chloride 107 (98-107) mmol/L Carbon Dioxide 23 (22-30) mmol/L BUN 17 (9-20) mg/dL Creatinine 1.03 (0.66-1.25) mg/dL Glucose 110 H (74-99) mg/dL Calcium 10.9 H (8.4-10.2) mg/dL AST 26 (17-59) U/L ALT 30 (4-49) U/L Alkaline Phosphatase 74 (38-126) U/L Total Protein 7.4 (6.3-8.2) g/dL Albumin 4.5 (3.5-5.0) g/dL Current Medications Generic Name Dose Route Start Last Admin Trade Name Freq PRN Reason Stop Dose Admin Aspirin 325 mg 07/18/20 09:00 Aspirin 325 Mg Tab PO DAILY OPAL Nitroglycerin 0.4 mg 07/17/20 16:32 Nitroglycerin Sl Tabs 0.4 Mg Tab SUBLINGUAL Q5M PRN Chest Pain Rivaroxaban 2.5 mg 07/17/20 19:00 07/18/20 06:12 Rivaroxaban 2.5 Mg Tablet PO 2.5 mg BID@0700,1900 OPAL Administration Intake and Output 07/17/20 07/18/20 07/18/20 22:59 06:59 14:59 Intake Total 480 Balance 480 Intake: Oral 480 Other: Voiding Method Toilet Toilet # Voids 2 Weight 104.689 kg 07/17/20 15:26 07/17/20 15:26
[2020-07-18 11:04] VITALS: BP 126/79; PULSE 74; RESP 16; TEMP 97.8
--- NOTE | 2020-07-18 12:15 | NM ---
EXAMINATION TYPE: NM stress lexiscan cardiolite DATE OF EXAM: 07/18/2020 COMPARISON: NONE HISTORY: Chest pain TECHNIQUE: After the intravenous administration of 9.48 mCi Tc 99m Sestamibi - Cardiolite resting SP ECT images acquired 45 minutes post injection. The patient received 0.4mg Lexiscan, 25.5 mCi Tc 99m Sestamibi - Stress images obtained [address] injection FINDINGS: Review of stress and rest SPECT images demonstrates no distinct perfusion abnormality. Gated analysi s shows normal wall motion with an estimated left ventricular ejection fraction of 69 %. TID 1.08 IMPRESSION: No scintigraphic evidence for reversible ischemia.
--- NOTE | 2020-07-18 13:30 | ECHOF ---
Referral Reason:chest pain MEASUREMENTS -------- HEIGHT: 180.3 cm WEIGHT: 104.3 kg BP: 128/82 RVIDd: 3.2 cm (< 3.3) IVSd: 0.9 cm (0.6 - 1.1) LVIDd: 4.9 cm (3.9 - 5.3) LVPWd: 1.0 cm (0.6 - 1.1) IVSs: 1.8 cm LVIDs: 2.0 cm LVPWs: 2.0 cm Ao Diam: 2.7 cm (2.0 - 3.7) AV Cusp: 2.0 cm (1.5 - 2.6) LA Diam: 3.6 cm (2.7 - 3.8) MV EXCURSION: 15.965 mm (> 18.000) MV EF SLOPE: 93 mm/s (70 - 150) EPSS: 0.5 cm MV E Volodymyr: 0.56 m/s MV DecT: 252 ms MV A Volodymyr: 0.57 m/s MV E/A Ratio: 0.98 RAP: 5.00 mmHg RVSP: 15.36 mmHg FINDINGS -------- This was a technically difficult study with suboptimal views. The left ventricular size is normal. Left ventricular wall thickness is normal. Overall left vent ricular systolic function is normal with, an EF between 55 - 60 %. The right ventricle is mildly enlarged. The left atrial size is normal. The right atrial size is normal. 5.0mg of Lumason was utilized for enhancement of images The aortic valve is trileaflet and appears structurally normal. The mitral valve is normal. There is trace mitral regurgitation. The tricuspid valve appears structurally normal. Trace tricuspid regurgitation present. Right george tricular systolic pressure is normal at < 35 mmHg. There is no pulmonic regurgitation present. The aortic root size is normal. IVC Not well visulized. There is no pericardial effusion. CONCLUSIONS -------- 1. The left ventricular size is normal. 2. Left ventricular wall thickness is normal. 3. Overall left ventricular systolic function is normal with, an EF between 55 - 60 %. 4. The right ventricle is mildly enlarged. 5. There is trace mitral regurgitation. 6. Trace tricuspid regurgitation present. 7. There is no pericardial effusion. BUTTON CLAMPER: Shabnam Cramer RDCS
--- NOTE | 2020-07-18 13:59 | P.STRESS ---
- Stress Test Note Stress Test Results/Findings: Exam Performed: NM stress lexiscan cardiolite Exam Date: 07/18/20 Reason for Exam: CHEST PAIN Height: 6 ft Weight: 104.69 kg Protocol: LEXISCAN Stage: N/A Duration of Exercise: 6 MINUTES Resting Heart Rate: 78 Resting Blood Pressure: 121/70 Maximum Achieved Heart Rate: 100 Maximum Achieved Blood Pressure: 144/76 85% PMHR: N/A 100% PMHR: N/A METS: N/A Technologist Comment: Stress Test Results/Findings: At baseline EKG showed normal sinus rhythm, normal axis, nonspecific T-wave flattening in lead 3. Patient recieved IV infusion of Lexiscan 0.4mg and at peak infusion EKG showed no significant change from baseline. Conclusions: 1. Normal EKG response to Lexiscan infusion 2. Nuclear imaging to be reported separately.
--- NOTE | 2020-07-18 15:12 | P.HPIM ---
History of Present Illness H&P Date: 07/18/20 Chief Complaint: Head pressure, chest pressure History of presenting complaint: This is a pleasant 60-year-old patient of Dr. Franklin Johnson. Chronic stable medical conditions include patient having a DVT in February of this year. For which patient takes xarelto. Also found to have factor V Leyden mutation. Patient gets these episodes when he gets some pressure in the head and chest pressure. Last normal for short time. Patient in the past has gone up to [facility] l had a MRI of the brain. That was reportedly negative. Also patient was sent to for a full workup and everything came back to be negative. Patient had another episode with id. up pressure on the left part of the head, chest pressure. Lasted for a few minutes. No dizziness, lightheadedness. No changes speech or vision. No trouble walking. Sent in to rule out a cardiac cause. 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 Alcohol occasionally. . Family history: Reviewed, noncontributory to presentation Physical examination: VITAL SIGNS: 98, 60, 18, 128/82, 98% on room air GENERAL: BMI 31.3, sitting up, comfortable. EYES: Pupils equal. Conjunctiva normal. HEENT: External appearance of nose and ears normal, oral cavity grossly normal. NECK: JVD not raised; masses not palpable. HEART: First and second heart sounds are normal; no edema. LUNGS: Respiratory rate normal; clear to auscultation. ABDOMEN: Soft, nontender, liver spleen not palpable, no masses palpable. PSYCH: Alert and oriented x3; mood and affect normal. NEUROLOGICAL: Cranial nerves grossly intact; no facial asymmetry, power and sensation grossly intact. LYMPHATICS: No lymph nodes palpable in the axilla and neck INVESTIGATIONS, reviewed in the clinical context: White count 6 hemoglobin 16.1 platelets 21 potassium 4.2 creatinine 1.03 Troponin I 3 negative LDL 176 Chest x-ray film personally reviewed by wv-lungs clear EKG tracing personally reviewed by me-normal sinus rhythm Doppler ultrasound of the left leg-negative for DVT 2-D echo-EF 55-60% Assessment: -Anterior chest pain. Admitted to rule out a cardiac cause. Troponins are negative. -History of DVT for which patient will Xarelto -Factor V Leyden mutation -Left inguinal hernia Plan: Home medications resumed. Put on aspirin. Cardiology consulted. Stress test ordered Past Medical History Past Medical History: Deep Vein Thrombosis (DVT) Additional Past Medical History / Comment(s): Blood clots, factor 5 LEFT KIDNEY CYST AND HERNIA INGUINAL History of Any Multi-Drug Resistant Organisms: None Reported Past Surgical History: No Surgical Hx Reported Past Psychological History: No Psychological Hx Reported Smoking Status: Never smoker Past Alcohol Use History: Occasional Past Drug Use History: None Reported Medications and Allergies Home Medications Medication Instructions Recorded Confirmed Type Rivaroxaban [Xarelto] 2.5 mg PO BID@0700,1900 07/17/20 07/17/20 History Atorvastatin [Lipitor] 20 mg PO HS #30 tab 07/18/20 Rx lisinopriL [Zestril] 5 mg PO DAILY #30 tab 07/18/20 Rx Allergies Allergy/AdvReac Type Severity Reaction Status Date / Time apixaban [From Eliquis] Allergy Chest Pain Verified 07/17/20 16:33 clindamycin Allergy Swelling Verified 07/17/20 16:33 Physical Exam Vitals: Vital Signs Temp Pulse Pulse Resp BP BP Pulse Ox 07/18/20 04:12 98 F 60 18 128/82 98 07/17/20 20:25 98.2 F 73 17 147/87 97 07/17/20 18:00 97.9 F 68 16 177/96 97 07/17/20 16:54 97.9 F 83 18 150/87 97 07/17/20 15:54 83 18 150/87 97 07/17/20 14:50 97.9 F 79 20 177/93 98 Intake and Output 07/17/20 07/18/20 07/18/20 22:59 06:59 14:59 Intake Total 480 Balance 480 Intake: Oral 480 Other: Voiding Method Toilet Toilet # Voids 2 0 Weight 104.689 kg Results CBC & Chem 7: 07/17/20 15:26 07/17/20 15:26 Labs: Abnormal Lab Results - Last 24 Hours (Table) 07/17/20 07/18/20 Range/Units 15:26 07:03 Glucose 110 H (74-99) mg/dL Calcium 10.9 H (8.4-10.2) mg/dL Triglycerides 250 H (<150) mg/dL Cholesterol 271 H (<200) mg/dL LDL Cholesterol, Calc 176 H (0-99) mg/dL Thrombosis Risk Factor Assmnt - Choose All That Apply Each Factor Represents 1 point: Age 41-60 years Each Risk Factor Represents 3 Points: Positive Factor V Leiden Thrombosis Risk Factor Assessment Total Risk Factor Score: 4 Thrombosis Risk Factor Assessment Level: Moderate Risk
[2020-07-18] MEDS ORDERED: ATORVASTATIN 20 MG TAB PO SCH (21:00)
--- NOTE | 2020-07-18 22:11 | P.DS ---
Providers Date of admission: 07/17/20 16:35 Expected date of discharge: 07/18/20 Attending physician: Gianni Saxena Consults: 07/17/20 16:32 Consult Physician Urgent Consulting Provider: Janina Machado Consult Reason/Comments: chest pain Do you want consulting provider notified?: Yes Primary care physician: [facility] Course: Chief Complaint: Head pressure, chest pressure History of presenting complaint: This is a pleasant 60-year-old patient of Dr. Franklin Johnson. Chronic stable medical conditions include patient having a DVT in February of this year. For which patient takes xarelto. Also found to have factor V Leyden mutation. Patient gets these episodes when he gets some pressure in the head and chest pressure. Last normal for short time. Patient in the past has gone up to [facility] had a MRI of the brain. That was reportedly negative. Also patient was sent to [facility] for a full workup and everything came back to be negative. Patient had another episode with id. up pressure on the left part of the head, chest pressure. Lasted for a few minutes. No dizziness, lightheadedness. No changes speech or vision. No trouble walking. Sent in to rule out a cardiac cause. Troponins were negative. Nuclear stress test was negative. Given the recurrence of these symptoms including head pressure chest pressure and questionable flushing at times. If the symptoms to be persistent in her record. Then the diagnosis of pheochromocytoma and carcinoid syndrome to be considered. This can be worked up as an outpatient. I'm sending a copy of this dictation to patient's family doctor. And the electrical engineering director. Consultation: Dr. Lamas from cardiology Physical examination: VITAL SIGNS: 87.8, 74, 16, 126.79, 97% room air GENERAL: BMI 31.3, sitting up, comfortable. EYES: Pupils equal. Conjunctiva normal. NECK: JVD not raised; masses not palpable. HEART: First and second heart sounds are normal; no edema. LUNGS: Respiratory rate normal; clear to auscultation. ABDOMEN: Soft, nontender, liver spleen not palpable, no masses palpable. PSYCH: Alert and oriented x3; mood and affect normal. INVESTIGATIONS, reviewed in the clinical context: White count 6 hemoglobin 16.1 platelets 21 potassium 4.2 creatinine 1.03 Troponin I 3 negative LDL 176 Chest x-ray film personally reviewed by me-lungs clear EKG tracing personally reviewed by me-normal sinus rhythm Doppler ultrasound of the left leg-negative for DVT 2-D echo-EF 55-60% Nuclear stress test-negative for ischemia Assessment: -Anterior chest pain. Nuclear stress test-negative. -History of DVT for which patient will Xarelto -Factor V Leyden mutation -Left inguinal hernia -[Given the recurrence of these symptoms. If they persist. Further workup as an outpatient of pheochromocytoma and carcinoid syndrome. Might be done Disposition: Home Patient Condition at Discharge: Stable Plan - Discharge Summary Discharge Rx Participant: No New Discharge Prescriptions: New Atorvastatin [Lipitor] 20 mg PO HS #30 tab lisinopriL [Zestril] 5 mg PO DAILY #30 tab Continue Rivaroxaban [Xarelto] 2.5 mg PO BID@0700,1900 Discharge Medication List Rivaroxaban [Xarelto] 2.5 mg PO BID@0700,1900 07/17/20 [History] Atorvastatin [Lipitor] 20 mg PO HS #30 tab 07/18/20 [Rx] lisinopriL [Zestril] 5 mg PO DAILY #30 tab 07/18/20 [Rx] Follow up Appointment(s)/Referral(s): Ez Lamas DO [STAFF PHYSICIAN] - 2 Weeks (office will call for follow-up appointment) Adi Johnson MD [Primary Care Provider] - 07/23/20 9:00 am
[2020-07-19] MEDS ORDERED: lisinopriL 5 MG TAB PO SCH (09:00)
== END 2020-07-18 15:35 | disposition home or self-care (01) ==
LOC: EC 14:48 → 3NCARDOBS 16:35
PROVIDERS: ADMIT Hospitalist; ATTEND Hospitalist
DX: R07.89 Other chest pain (principal); D35.00 Benign neoplasm of unspecified adrenal gland; D68.51 Activated protein C resistance; E34.0 Carcinoid syndrome; E78.5 Hyperlipidemia, unspecified; I10 Essential (primary) hypertension; K40.90 Unilateral inguinal hernia, without obstruction or gangrene, not specified as recurrent; Z79.01 Long term (current) use of anticoagulants; Z79.82 Long term (current) use of aspirin; Z79.899 Other long term (current) drug therapy; Z86.718 Personal history of other venous thrombosis and embolism
CPT/HCPCS: 93005 ×2; 99285; 36415; 93017; 85379; 80061; 80053; 83735; 84484; 85025; 85610; 85730; 71046; 93971; 78452; G0378 ×2; C8929; A9500; J2785; Q9950; 93306

== ENCOUNTER → 2020-10-08 | Outpatient (CLI) | payer OTHER ==
--- NOTE | 2020-10-08 11:21 | US ---
EXAMINATION TYPE: US venous doppler duplex LE LT DATE OF EXAM: 10/08/2020 10:53 AM COMPARISON: NONE CLINICAL HISTORY: 60-year-old male M79.662 PAIN IN LT LOWER LIMB. SIDE PERFORMED: left TECHNIQUE: The lower extremity deep venous system is examined utilizing real time linear array sonog rafita with graded compression, doppler sonography and color-flow sonography. FINDINGS: VESSELS IMAGED: Common Femoral Vein Deep Femoral Vein Greater Saphenous Vein * Femoral Vein Popliteal Vein Small Saphenous Vein * Proximal Calf Veins (* superficial vessels) Left Leg: no evidence of DVT IMPRESSION: No evidence for DVT within the left lower extremity imaged from the groin to the upper calf.
== END | disposition home or self-care (01) ==
LOC: RADUSWWP 10:29
PROVIDERS: ATTEND Internal Medicine Hematology & Oncology
DX: M79.662 Pain in left lower leg (principal); Z88.8 Allergy status to other drugs, medicaments and biological substances

== ENCOUNTER 2020-11-14 10:29 | Emergency (ER) | payer OTHER ==
[2020-11-14 10:35] VITALS: TEMP 98
[2020-11-14] MEDS ORDERED: SODIUM CHLORIDE 0.9% 1,000 ML IV STA (11:07)
--- NOTE | 2020-11-14 11:15 | ED ---
General Adult HPI - General Source: patient Mode of arrival: ambulatory Limitations: no limitations <Brian Marr - Last Filed: 11/14/20 12:34> <Aidee Bill - Last Filed: 11/14/20 21:43> - General Chief complaint: Dizziness Stated complaint: wants BP checked Time Seen by Provider: 11/14/20 10:39 - History of Present Illness Initial comments: 60-year-old male with a past medical history of DVT, factor V presents to the emergency room for a chief complaint of blood pressure issues. Patient reports that 2 weeks ago he got shaky and states he checked his blood pressure and it was high. States that since then he has been checking it several times a day and it is anywhere from 120-170. He denies chest pain or shortness of breath. Patient reports that one day use checking his blood pressure and decided to check in and up both arms and it was different which concerned him. Patient reports he has a history of hypertension however the last time he was on medications his blood pressure was too low so they took him off of them. Patient has not been on medication for his blood pressure since. Patient is feeling well at this time, currently asymptomatic.Patient has no other complaints at this time including shortness of breath, chest pain, abdominal pain, nausea or vomiting, headache, or visual changes. (Brian Marr) - Related Data Home Medications Medication Instructions Recorded Confirmed Aspirin 81 mg PO HS 11/14/20 11/14/20 Allergies Allergy/AdvReac Type Severity Reaction Status Date / Time apixaban [From Eliquis] Allergy Chest Pain Verified 11/14/20 11:43 clindamycin Allergy Anaphylaxis Verified 11/14/20 11:43 Review of Systems ROS Other: All systems not noted in ROS Statement are negative. <Brian Marr - Last Filed: 11/14/20 12:34> ROS Other: All systems not noted in ROS Statement are negative. <Aidee Bill - Last Filed: 11/14/20 21:43> ROS Statement: Those systems with pertinent positive or pertinent negative responses have been documented in the HPI. Past Medical History Past Medical History: Deep Vein Thrombosis (DVT) Additional Past Medical History / Comment(s): Blood clots, factor 5 LEFT KIDNEY CYST AND HERNIA INGUINAL History of Any Multi-Drug Resistant Organisms: None Reported Past Surgical History: No Surgical Hx Reported Past Psychological History: No Psychological Hx Reported Smoking Status: Never smoker Past Alcohol Use History: None Reported Past Drug Use History: None Reported <Brian Marr - Last Filed: 11/14/20 12:34> General Exam Limitations: no limitations General appearance: alert, in no apparent distress Head exam: Present: atraumatic Eye exam: Present: normal appearance, PERRL, EOMI. Absent: scleral icterus, conjunctival injection ENT exam: Present: normal exam, mucous membranes moist Neck exam: Present: normal inspection, full ROM. Absent: tenderness Respiratory exam: Present: normal lung sounds bilaterally. Absent: respiratory distress, wheezes Cardiovascular Exam: Present: regular rate, normal rhythm, normal heart sounds GI/Abdominal exam: Present: soft, normal bowel sounds. Absent: distended, tenderness, guarding, rebound, rigid Extremities exam: Present: normal capillary refill (Radial pulses 2+ and equal in the bilateral upper extremities) Neurological exam: Present: alert <Brian Marr - Last Filed: 11/14/20 12:34> Course Vital Signs 11/14/20 11/14/20 11/14/20 10:31 10:59 11:00 Temperature 98 F Pulse Rate 80 77 75 Respiratory 18 18 16 Rate Blood Pressure 161/94 135/78 135/83 O2 Sat by Pulse 97 98 94 L Oximetry 11/14/20 11/14/20 11/14/20 11:30 12:00 12:30 Temperature Pulse Rate 64 68 66 Respiratory 16 16 16 Rate Blood Pressure 141/90 124/86 133/79 O2 Sat by Pulse 98 98 95 Oximetry EKG Findings - EKG Comments: EKG Findings:: Normal sinus rhythm, ventricular rate 67, CO intervals 182, QTC 407 <Brian Marr - Last Filed: 11/14/20 12:34> Medical Decision Making - Lab Data Result diagrams: 11/14/20 11:07 11/14/20 11:07 <Brian Marr - Last Filed: 11/14/20 12:34> - Lab Data Result diagrams: 11/14/20 11:07 11/14/20 11:07 <Aidee Bill - Last Filed: 11/14/20 21:43> - Medical Decision Making Vitals are stable. Blood pressure remains between 120 to 140s systolic. Heart rate is normal. EKG nonischemic. CBC CMP unremarkable. Troponin negative. Chest x-ray reveals no evidence for acute pulmonary disease. At this time blood pressure is stable, patient is well-appearing. I discussed the patient he should be Tigan as once or twice per day at the same time rather than throughout the day several times as blood pressure is labile and will change. He will record this once or twice per day check for his doctor. He will return here for any worsening symptoms. (Brian Marr) I was available for consultation in the emergency department. The history and physical exam were done by the midlevel provider. I was consulted for this patients care. I reviewed the case with the midlevel provider and based on their presentation of the patient, I agree with the assessment, medical decision making and plan of care as documented. Chart was dictated using [employer] dictation software. Attempts were made to correct any dictation errors however some typographical errors may persist. Patient was seen during a national state of emergency due to the Covid-19 pandemic. (Aidee Bill) - Lab Data Lab Results 11/14/20 11/14/20 11/14/20 Range/Units 11:07 11:07 11:07 WBC 5.7 (3.8-10.6) k/uL RBC 5.43 (4.30-5.90) m/uL Hgb 16.1 (13.0-17.5) gm/dL Hct 47.9 (39.0-53.0) % MCV 88.3 (80.0-100.0) fL MCH 29.6 (25.0-35.0) pg MCHC 33.6 (31.0-37.0) g/dL RDW 13.3 (11.5-15.5) % Plt Count 277 (150-450) k/uL MPV 6.7 Neutrophils % 70 % Lymphocytes % 20 % Monocytes % 7 % Eosinophils % 2 % Basophils % 1 % Neutrophils # 4.0 (1.3-7.7) k/uL Lymphocytes # 1.1 (1.0-4.8) k/uL Monocytes # 0.4 (0-1.0) k/uL Eosinophils # 0.1 (0-0.7) k/uL Basophils # 0.0 (0-0.2) k/uL Sodium 139 (137-145) mmol/L Potassium 4.3 (3.5-5.1) mmol/L Chloride 109 H (98-107) mmol/L Carbon Dioxide 23 (22-30) mmol/L Anion Gap 7 mmol/L BUN 15 (9-20) mg/dL Creatinine 0.69 (0.66-1.25) mg/dL Est GFR (CKD-EPI)AfAm >90 (>60 ml/min/1.73 sqM) Est GFR (CKD-EPI)NonAf >90 (>60 ml/min/1.73 sqM) Glucose 93 (74-99) mg/dL Calcium 10.5 H (8.4-10.2) mg/dL Total Bilirubin 0.7 (0.2-1.3) mg/dL AST 23 (17-59) U/L ALT 26 (4-49) U/L Alkaline Phosphatase 69 (38-126) U/L Troponin I <0.012 (0.000-0.034) ng/mL Total Protein 7.5 (6.3-8.2) g/dL Albumin 4.5 (3.5-5.0) g/dL Disposition Is patient prescribed a controlled substance at d/c from ED?: No Time of Disposition: 12:53 <Brian Marr P - Last Filed: 11/14/20 12:34> <Aidee Bill A - Last Filed: 11/14/20 21:43> Clinical Impression: Hypertension Disposition: HOME SELF-CARE Condition: Good Instructions (If sedation given, give patient instructions): How to Take a Blood Pressure (ED), Hypertension (ED) Additional Instructions: Please check your blood pressure once or twice per day at the same time and record these for your doctor. Return to the emergency room for any worsening symptoms. Referrals: Adi Johnson MD [Primary Care Provider] - 1-2 days
[2020-11-14 11:19] LABS: Basophils % (A) 1 %; Eosinophils # (A) 0.1 k/uL (0-0.7); Eosinophils % (A) 2 %; HCT 47.9 % (39.0-53.0); HGB 16.1 gm/dL (13.0-17.5); Lymphocytes # (A) 1.1 k/uL (1.0-4.8); Lymphocytes % (A) 20 %; MCH 29.6 pg (25.0-35.0); MCHC 33.6 g/dL (31.0-37.0); MCV 88.3 fL (80.0-100.0); Mean Platelet Volume 6.7; Monocytes # (A) 0.4 k/uL (0-1.0); Monocytes % (A) 7 %; Neutrophils % (A) 70 %; Platelet Count 277 k/uL (150-450); RBC 5.43 m/uL (4.30-5.90); RDW 13.3 % (11.5-15.5); WBC 5.7 k/uL (3.8-10.6)
[2020-11-14 11:35] LABS: ALT 26 U/L (4-49); AST 23 U/L (17-59); African American GFR (CKD) >90 (>60 ml/min/1.73 sqM); Albumin 4.5 g/dL (3.5-5.0); Alkaline Phosphatase 69 U/L (38-126); Anion Gap 7 mmol/L; Blood Urea Nitrogen 15 mg/dL (9-20); Calcium 10.5 mg/dL (8.4-10.2); Carbon Dioxide 23 mmol/L (22-30); Chloride 109 mmol/L (98-107); Glucose 93 mg/dL (74-99); Non-African American GFR(CKD) >90 (>60 ml/min/1.73 sqM); Potassium 4.3 mmol/L (3.5-5.1); Sodium 139 mmol/L (137-145); Total Bilirubin 0.7 mg/dL (0.2-1.3); Total Protein 7.5 g/dL (6.3-8.2)
--- NOTE | 2020-11-14 12:02 | XR ---
EXAMINATION TYPE: XR chest 2V DATE OF EXAM: 11/14/2020 COMPARISON: 07/17/2020 HISTORY: Shortness of breath TECHNIQUE: Frontal and lateral views of the chest are obtained. FINDINGS: Scattered senescent parenchymal changes noted. Hyperinflation compatible with COPD. No evidence for infiltrate. No evidence for atelectasis. Heart size is stable. Mediastinal structures are stable and grossly unremarkable. No evidence for hilar prominence. Degenerative changes dorsal spine. IMPRESSION: 1. No evidence for acute pulmonary disease.
[2020-11-14 12:19] VITALS: RESP 16
[2020-11-14 12:53] VITALS: BP 133/79; PULSE 66
== END 2020-11-14 13:02 | disposition home or self-care (01) ==
LOC: EC 10:29
DX: I10 Essential (primary) hypertension (principal); Z79.82 Long term (current) use of aspirin; Z88.1 Allergy status to other antibiotic agents; Z88.8 Allergy status to other drugs, medicaments and biological substances; Z86.718 Personal history of other venous thrombosis and embolism
CPT/HCPCS: 36415; 71046; 80053; 84484; 85025; 93005; 96360; 99284

== ENCOUNTER → 2020-11-23 | Outpatient (CLI) | payer OTHER ==
--- NOTE | 2020-11-23 14:18 | US ---
EXAMINATION TYPE: US carotid duplex BILAT DATE OF EXAM: 11/23/2020 COMPARISON: NONE CLINICAL HISTORY: R42 DIZZINESS. uncontrolled HTN. On meds x 1 week. EXAM MEASUREMENTS: RIGHT: Peak Systolic Velocity (PSV) cm/sec ----- Right CCA: 72.1 ----- Right ICA: 85.3 ----- Right ECA: 117.3 ICA/CCA ratio: 1.2 RIGHT: End Diastole cm/sec ----- Right CCA: 19.7 ----- Right ICA: 35.8 ----- Right ECA: 15.0 LEFT: Peak Systolic Velocity (PSV) cm/sec ----- Left CCA: 91.9 ----- Left ICA: 142.2 ----- Left ECA: 111.3 ICA/CCA ratio: 1.5 LEFT: End Diastole cm/sec ----- Left CCA: 27.0 ----- Left ICA: 47.7 ----- Left ECA: 17.6 VERTEBRALS (direction of flow): Right Vertebral: Antegrade Left Vertebral: Antegrade Rhythm: Normal No significant stenosis. Wall thickening seen. Plaque visualized in bilateral bulbs. Elevated left ICA velocities. Incidental finding: Prominent left lymph nodes visualized with largest = 1.7 x 1.0 x 0.7 cm IMPRESSION: 1. Moderate stenosis left internal carotid artery between 50 and 69%. 2. Prominent left-sided lymph nodes Criteria for Assigning % of Stenosis / Diameter reduction (Estimation based on the indirect measurements of the internal carotid artery velocities (ICA PSV). 1. Normal (no stenosis)=ICA PSV < 125 cm/s: ratio < 2.0: ICA EDV<40 cm/s. 2. Less than 50% stenosis=ICA PSV < 125 cm/s: ratio < 2.0: ICA EDV<40 cm/s. 3. 50 to 69% stenosis=ICA PSV of 125 to 230 cm/s: ration 2.0 ? 4.0: ICA EDV 40-100 cm/s. 4. Greater than 70% stenosis to near occlusion= ICA PSV > 230 cm/s: ratio > 4.0: ICA EDV > 100 cm/s. 5. Near occlusion= ICA PSV velocities may be low or undetectable: variable ratio and ICA EDV. 6. Total occlusion=unable to detect flow.
== END | disposition home or self-care (01) ==
LOC: RADUSWWP 13:44
PROVIDERS: ATTEND Pediatrics
DX: I65.22 Occlusion and stenosis of left carotid artery (principal)
CPT/HCPCS: 93880

== ENCOUNTER 2021-09-04 10:09 | Observation (INO) | payer OTHER ==
--- NOTE | 2021-09-04 10:44 | ED ---
Chest Pain HPI - General Chief Complaint: Chest Pain Stated Complaint: Chest Pain/Lt arm pain Time Seen by Provider: 09/04/21 10:26 Source: patient, RN notes reviewed Mode of arrival: ambulatory Limitations: no limitations - History of Present Illness Initial Comments: 7-year-old male with a prior history of DVT in the left leg weakness couple years ago who started having retrosternal chest discomfort on-and-off for the past week. He also states he's had some numbness going down the left arm is no symptoms at this time the chest pain is been on-and-off for the past week he states that sometimes she'll leg indigestion other times dull achy. Latest pain was 3-4/10 in severity. No other complaints modifying factors at this time MD Complaint: chest pain - Related Data Home Medications Medication Instructions Recorded Confirmed Aspirin 81 mg PO HS 11/14/20 11/14/20 Allergies Allergy/AdvReac Type Severity Reaction Status Date / Time apixaban [From Eliquis] Allergy Chest Pain Verified 09/04/21 10:18 clindamycin Allergy Anaphylaxis Verified 09/04/21 10:18 Review of Systems ROS Statement: Those systems with pertinent positive or pertinent negative responses have been documented in the HPI. ROS Other: All systems not noted in ROS Statement are negative. EKG Findings - EKG Results: EKG: interpreted by CIERRA, sinus rhythm (Sinus rhythm a 69. Interval 188 QRS duration 94 QT since QTC 398/426 some artifact present) Past Medical History Past Medical History: Deep Vein Thrombosis (DVT) Additional Past Medical History / Comment(s): Blood clots, factor 5 LEFT KIDNEY CYST AND HERNIA INGUINAL History of Any Multi-Drug Resistant Organisms: None Reported Past Surgical History: No Surgical Hx Reported Past Psychological History: No Psychological Hx Reported Smoking Status: Never smoker Past Alcohol Use History: None Reported Past Drug Use History: None Reported General Exam - General Exam Comments Initial Comments: This is a well-developed well-nourished awake alert oriented times 3 male Limitations: no limitations General appearance: alert, in no apparent distress Head exam: Present: atraumatic, normocephalic, normal inspection Eye exam: Present: normal appearance, PERRL, EOMI. Absent: scleral icterus, conjunctival injection, periorbital swelling ENT exam: Present: normal exam, mucous membranes moist Neck exam: Present: normal inspection, full ROM, other (No surgery or bruits). Absent: tenderness, meningismus, lymphadenopathy Respiratory exam: Present: normal lung sounds bilaterally. Absent: respiratory distress, wheezes, rales, rhonchi, stridor Cardiovascular Exam: Present: regular rate, normal rhythm, normal heart sounds. Absent: systolic murmur, diastolic murmur, rubs, gallop, clicks GI/Abdominal exam: Present: soft, normal bowel sounds. Absent: distended, tenderness, guarding, rebound, rigid, bruit, pulsatile mass Extremities exam: Present: normal inspection, full ROM, normal capillary refill. Absent: tenderness, pedal edema, joint swelling, calf tenderness Back exam: Present: normal inspection Neurological exam: Present: alert, oriented X3, CN II-XII intact Psychiatric exam: Present: normal affect, normal mood Skin exam: Present: warm, dry, intact, normal color. Absent: rash Course Vital Signs 09/04/21 09/04/21 10:14 13:05 Temperature 98.9 F 98.5 F Pulse Rate 76 71 Respiratory 18 16 Rate Blood Pressure 157/101 140/94 O2 Sat by Pulse 97 96 Oximetry Chest Pain MDM - MDM Imaging reviewed no acute findings agents had no further chest pains his arrival due to the symptoms however ACS is considered. I did discuss case with him and Dr. Saxena who did come see the patient in emergency department. Disposition Clinical Impression: Unstable angina pectoris, Atypical chest pain Disposition: ADMITTED IP TO THIS [facility] Condition: Fair Referrals: Adi Johnson MD [Primary Care Provider] - 1-2 days
[2021-09-04 11:01] LABS: Basophils % (A) 1 %; Eosinophils # (A) 0.1 k/uL (0-0.7); Eosinophils % (A) 2 %; HCT 46.1 % (39.0-53.0); HGB 15.8 gm/dL (13.0-17.5); Lymphocytes # (A) 0.9 k/uL (1.0-4.8); Lymphocytes % (A) 17 %; MCHC 34.4 g/dL (31.0-37.0); MCV 90.3 fL (80.0-100.0); Monocytes # (A) 0.4 k/uL (0-1.0); Monocytes % (A) 8 %; Neutrophils # (A) 3.8 k/uL (1.3-7.7); Neutrophils % (A) 71 %; Platelet Count 279 k/uL (150-450); RDW 13.1 % (11.5-15.5); WBC 5.4 k/uL (3.8-10.6)
[2021-09-04 11:16] LABS: ALT 27 U/L (4-49); AST 24 U/L (17-59); African American GFR (CKD) >90 (>60 ml/min/1.73 sqM); Albumin 4.5 g/dL (3.5-5.0); Alkaline Phosphatase 72 U/L (38-126); Anion Gap 8 mmol/L; Blood Urea Nitrogen 16 mg/dL (9-20); Calcium 10.9 mg/dL (8.4-10.2); Carbon Dioxide 24 mmol/L (22-30); Chloride 107 mmol/L (98-107); Glucose 98 mg/dL (74-99); Lipase 169 U/L (23-300); Magnesium 2.2 mg/dL (1.6-2.3); Non-African American GFR(CKD) >90 (>60 ml/min/1.73 sqM); Potassium 4.2 mmol/L (3.5-5.1); Sodium 139 mmol/L (137-145); Total Bilirubin 0.7 mg/dL (0.2-1.3); Total Protein 7.5 g/dL (6.3-8.2)
--- NOTE | 2021-09-04 11:18 | XR ---
EXAMINATION TYPE: XR chest 2V DATE OF EXAM: 09/04/2021 COMPARISON: 11/14/2020 INDICATION: Chest pain TECHNIQUE: Frontal and lateral views of the chest are obtained. FINDINGS: The heart size is normal. The pulmonary vasculature is normal. The lungs are clear. IMPRESSION: 1. No acute pulmonary process.
[2021-09-04 11:19] LABS: Partial Thromboplastin Time 25.7 sec (22.0-30.0); Prothrombin Time 10.5 sec (9.0-12.0)
[2021-09-04] MEDS ORDERED: NITROGLYCERIN SL TABS 0.4 MG TAB SUBLINGUAL PRN (13:15)
[2021-09-04] MEDS ORDERED: HEPARIN SODIUM 1,000 UN/ML (10ML VL) IV ONE (13:15)
[2021-09-04] MEDS ORDERED: HEPARIN SOD,PORK IN 0.45% NACL 25,000 UNIT in 0.45% NACL 1 250ML.BAG IV SCH (13:15)
[2021-09-04] MEDS ORDERED: SODIUM CHLORIDE 0.9% 1,000 ML IV SCH (13:15)
[2021-09-04] MEDS ORDERED: NITROGLYCERIN OINT 1 INCH/GM PACKET TOPICAL SCH (18:00)
[2021-09-04] MEDS: ACETAMINOPHEN TAB 500 MG TAB PO PRN (20:43)
[2021-09-04] MEDS ORDERED: LORazepam 0.5 MG TAB PO PRN (20:51)
[2021-09-04] MEDS ORDERED: NALOXONE 0.4 MG/ML 1 ML VIAL IV PRN (20:51)
[2021-09-04] MEDS ORDERED: LACTULOSE 20 GM/30 ML CUP PO PRN (20:51)
[2021-09-04] MEDS ORDERED: CALCIUM CARBONATE 500 MG CHEWABLE PO PRN (20:51)
[2021-09-04] MEDS ORDERED: ONDANSETRON 4 MG/2 ML VIAL IVP PRN (20:51)
[2021-09-04] MEDS ORDERED: TEMAZEPAM 15 MG CAP PO PRN (20:51)
--- NOTE | 2021-09-04 20:52 | P.HPIM ---
History of Present Illness H&P Date: 09/04/21 Chief Complaint: Chest pain History of presenting complaint: This is a pleasant 61-year-old patient of Dr. Franklin Johnson. Chronic stable medical conditions include patient having a DVT in March 17./ takes xarelto. factor V Leyden mutation. Patient was here in June 2020. Nuclear stress test was negative for ischemia. Patient now presents with episodes of left-sided chest pain. Lasting for a few seconds. Could be addressed. He is also noticed some numbness of the left arm. Last night. No dizziness or lightheadedness. No shortness of breath. Patient also been bothered by reflux symptoms. We should be more so present the last 2 weeks. No precipitating or relieving factors. Patient otherwise rather active. Patient is seen by me in the ER. Review of systems: GEN.: None EYES: None HEENT: As above NECK: None RESPIRATORY: None CARDIOVASCULAR: As above None GASTROINTESTINAL: None GENITOURINARY: Heartburn MUSCULOSKELETAL: None LYMPHATICS: None HEMATOLOGICAL: None PSYCHIATRY: None NEUROLOGICAL: None Past medical history to include: Left leg DVT, factor V Leyden mutation, kidney cyst, inguinal hernia Social history: Magazine Writer. Does not smoke. Alcohol occasionally. . Family history: Reviewed, noncontributory to presentation Physical examination: VITAL SIGNS: 97.8, 73, 18, 146-91, 95% room air GENERAL: BMI 29.6, reclining in bed, awake, comfortable EYES: Pupils equal. Conjunctiva normal. HEENT: External appearance of nose and ears normal, oral cavity grossly normal. NECK: JVD not raised; masses not palpable. HEART: First and second heart sounds are normal; no edema. LUNGS: Respiratory rate normal; clear to auscultation. ABDOMEN: Soft, nontender, liver spleen not palpable, no masses palpable. PSYCH: Alert and oriented x3; mood and affect normal. NEUROLOGICAL: Cranial nerves grossly intact; no facial asymmetry, power and sensation grossly intact. LYMPHATICS: No lymph nodes palpable in the axilla and neck INVESTIGATIONS, reviewed in the clinical context: White count 5.4 hemoglobin 13.8 platelets 279 potassium 4.2 creatinine 0.87 Troponin I less than 0.0123 Coronavirus [PCR]: Not detected EKG tracing personally reviewed by me-normal sinus rhythm, rate 69 Chest x-ray film personally reviewed by me-no infiltrates Previous testing from June 2020 2-D echo-EF 55-60% Nuclear stress test-negative for ischemia Assessment and plan: -Anterior chest pain. Lasting only a few seconds. Left arm numbness. The baseline is patient rather active. Doubt cardiac. Enzymes are negative. No EKG changes. Telemetry. Consult cardiology -On last admission pheochromocytoma was considered posterity. Check free metanephrines -Chronic DVT Xarelto -Factor V Leyden mutation On Xarelto -Exacerbation of GERD Protonic *Protonix. Telemetry. Consult cardiology. Discussed with patient. Past Medical History Past Medical History: Deep Vein Thrombosis (DVT), Osteoarthritis (OA) Additional Past Medical History / Comment(s): Blood clots, factor 5 LEFT KIDNEY CYST AND HERNIA INGUINAL History of Any Multi-Drug Resistant Organisms: None Reported Past Surgical History: No Surgical Hx Reported Additional Past Surgical History / Comment(s): CYST REMOVED OFF TAILBONE Past Anesthesia/Blood Transfusion Reactions: No Reported Reaction Past Psychological History: No Psychological Hx Reported Smoking Status: Never smoker Past Alcohol Use History: None Reported Past Drug Use History: None Reported - Past Family History Mother Family Medical History: Cancer Additional Family Medical History / Comment(s): LUNG CANCER Father Family Medical History: Diabetes Mellitus Medications and Allergies Home Medications Medication Instructions Recorded Confirmed Type Aspirin 81 mg PO HS 11/14/20 09/04/21 History Allergies Allergy/AdvReac Type Severity Reaction Status Date / Time clindamycin Allergy Anaphylaxis Verified 09/04/21 18:17 apixaban [From Eliquis] AdvReac Dizziness Verified 09/04/21 18:17 rivaroxaban [From Xarelto] AdvReac Dizziness Verified 09/04/21 18:17 Physical Exam Vitals: Vital Signs Temp Pulse Resp BP Pulse Ox 09/04/21 19:56 18 09/04/21 17:21 18 09/04/21 17:00 18 09/04/21 16:57 97.8 F 73 18 146/91 95 09/04/21 13:05 98.5 F 71 16 140/94 96 09/04/21 10:14 98.9 F 76 18 157/101 97 Intake and Output 09/04/21 09/04/21 09/04/21 06:59 14:59 22:59 Other: Voiding Method Toilet Weight 101.605 kg Results CBC & Chem 7: 09/04/21 10:51 09/04/21 10:51 Labs: Abnormal Lab Results - Last 24 Hours (Table) 09/04/21 09/04/21 Range/Units 10:51 10:51 Lymphocytes # 0.9 L (1.0-4.8) k/uL Calcium 10.9 H (8.4-10.2) mg/dL Thrombosis Risk Factor Assmnt - Choose All That Apply Any of the Below Risk Factors Present?: Yes Each Factor Represents 1 point: Age 41-60 years Each Risk Factor Represents 3 Points: Positive Factor V Leiden, Family history of DVT/PE, History of DVT/PE Thrombosis Risk Factor Assessment Total Risk Factor Score: 10 Thrombosis Risk Factor Assessment Level: High Risk
[2021-09-04] MEDS: PANTOPRAZOLE 40 MG TABLET PO SCH (21:11)
--- NOTE | 2021-09-04 23:34 | CT ---
EXAMINATION TYPE: CT abdomen w con DATE OF EXAM: 09/04/2021 COMPARISON: 05/22/2020 HISTORY: Abd Pain CT DLP: 1265 mGycm Automated exposure control for dose reduction was used. CONTRAST: Performed with IV Contrast, patient injected with 80 mL of Isovue 300. There is subsegmental atelectasis at the lung bases. Heart size is normal. There is no pericardial ef fusion. There is no pleural effusion. Liver spleen stomach pancreas gallbladder appear intact. The bile ducts are not dilated. There is no adrenal mass. Kidneys show satisfactory contrast opacification. There is no hydronephrosi s. Ureters are not dilated. There is no retroperitoneal adenopathy. There is 1.5 cm cortical cyst upp er pole right kidney. There are other smaller renal cortical cysts. There is no mesenteric edema. There is no ascites or free air. There is no sign of a bowel obstructio n. Appendix is partly seen and appears normal. Delayed images show normal renal excretion. Lumbar valencia tebra have normal alignment. There is no compression fracture. IMPRESSION: Negative CT scan of the abdomen. No evidence of appendicitis. No renal stone or obstruction.
[2021-09-05] MEDS: ACETAMINOPHEN TAB 500 MG TAB PO PRN (03:42)
[2021-09-05] MEDS: ASPIRIN 81 MG PO SCH (08:56)
[2021-09-05] MEDS: PANTOPRAZOLE 40 MG TABLET PO SCH ×2 (08:56→16:47)
[2021-09-05] MEDS ORDERED: ASPIRIN 325 MG TAB PO SCH (09:00)
[2021-09-05 12:34] LABS: Chol/HDL Ratio 6.91 Ratio; LDL Cholesterol,Calculated 183.9 mg/dL (0.0-131.0)
[2021-09-05] MEDS: SODIUM CHLORIDE 0.45% 1,000 ML IV SCH ×2 (16:49→19:18)
--- NOTE | 2021-09-05 17:22 | P.PN ---
Progress Note - Text Progress Note Date: 09/05/21 Chief Complaint: Chest pain History of presenting complaint: This is a pleasant 61-year-old patient of Dr. Franklin Johnson. Chronic stable medical conditions include patient having a DVT in March 17./ takes xarelto. factor V Leyden mutation. Patient was here in June 2020. Nuclear stress test was negative for ischemia. Patient now presents with episodes of left-sided chest pain. Lasting for a few seconds. Could be addressed. He is also noticed some numbness of the left arm. Last night. No dizziness or lightheadedness. No shortness of breath. Patient also been bothered by reflux symptoms. We should be more so present the last 2 weeks. No precipitating or relieving factors. Patient otherwise rather active. Patient is seen by me in the ER. September 05: Patient having more epigastric discomfort. Some bloating. Some burping. On PPI. Review of systems: Was done for constitutional, cardiovascular, GI, pulmonary. relevant finding as above Active Medications Acetaminophen (Acetaminophen Tab 500 Mg Tab) 500 mg PO Q6HR PRN PRN Reason: Fever and/ or MILD Pain Last Admin: 09/05/21 03:42 Dose: 500 mg Documented by: Aspirin (Aspirin 81 Mg) 81 mg PO DAILY [facility] Last Admin: 09/05/21 08:56 Dose: 81 mg Documented by: Calcium Carbonate/Glycine (Calcium Carbonate 500 Mg Chewable) 1,000 mg PO Q4HR PRN PRN Reason: Dyspepsia Sodium Chloride (Saline 0.45%) 1,000 mls @ 125 mls/hr IV .Q8H [facility] Last Admin: 09/05/21 16:49 Dose: 125 mls/hr Documented by: Lactulose (Lactulose 20 Gm/30 Ml Cup) 20 gm PO DAILY PRN PRN Reason: Constipation Lorazepam (Lorazepam 0.5 Mg Tab) 0.5 mg PO Q6HR PRN PRN Reason: Anxiety Naloxone HCl (Naloxone 0.4 Mg/Ml 1 Ml Vial) 0.2 mg IV Q2M PRN PRN Reason: Opioid Reversal Nitroglycerin (Nitroglycerin Sl Tabs 0.4 Mg Tab) 0.4 mg SUBLINGUAL Q5M PRN PRN Reason: Chest Pain Ondansetron HCl (Ondansetron 4 Mg/2 Ml Vial) 4 mg IVP Q8HR PRN PRN Reason: Nausea And Vomiting Pantoprazole Sodium (Pantoprazole 40 Mg Tablet) 40 mg PO AC-BID [facility] Last Admin: 09/05/21 16:47 Dose: 40 mg Documented by: Temazepam (Temazepam 15 Mg Cap) 15 mg PO HS PRN PRN Reason: Insomnia Past medical history to include: Left leg DVT, factor V Leyden mutation, kidney cyst, inguinal hernia 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 Alcohol occasionally. . Family history: Reviewed, noncontributory to presentation Physical examination: VITAL SIGNS: 97.7, 59, 16, 1:30/76, 99% room air GENERAL: BMI 29.6, reclining in bed, awake, comfortable EYES: Pupils equal. Conjunctiva normal. HEENT: External appearance of nose and ears normal, oral cavity grossly normal. NECK: JVD not raised; masses not palpable. HEART: First and second heart sounds are normal; no edema. LUNGS: Respiratory rate normal; clear to auscultation. ABDOMEN: Soft, epigastric tenderness no guarding rigidity, liver spleen not palpable, no masses palpable. PSYCH: Alert and oriented x3; mood and affect normal. INVESTIGATIONS, reviewed in the clinical context: Computed tomography scan of the abdomen with contrast: Unremarkable LDL 183 White count 5.4 hemoglobin 13.8 platelets 279 potassium 4.2 creatinine 0.87 Troponin I less than 0.0123 Coronavirus [PCR]: Not detected EKG tracing personally reviewed by me-normal sinus rhythm, rate 69 Chest x-ray film personally reviewed by me-no infiltrates Previous testing from June 2020 2-D echo-EF 55-60% Nuclear stress test-negative for ischemia Assessment and plan: -Anterior chest pain. Lasting only a few seconds. Left arm numbness. The baseline is patient rather active. Doubt cardiac. Enzymes are negative. No EKG changes. Telemetry. Consult cardiology -On last admission pheochromocytoma was considered posterity. Check free metanephrines. Computed tomography scan of the abdomen unremarkable -Chronic DVT Xarelto -Factor V Leyden mutation On Xarelto -Exacerbation of GERD Protonic. Liquid Tums *Protonix. Telemetry. Consult cardiology. Liquid Tums.
--- NOTE | 2021-09-05 19:00 | ECHOF ---
Referral Reason:2-D echo MEASUREMENTS -------- HEIGHT: 182.9 cm WEIGHT: 101.6 kg BP: IVSd: 1.0 cm (0.6 - 1.1) LVIDd: 5.2 cm (3.9 - 5.3) LVPWd: 1.3 cm (0.6 - 1.1) EDV(Teich): 128 ml IVSs: 1.4 cm LVIDs: 2.5 cm LVPWs: 1.4 cm %IVS Thck: 38 % ESV(Teich): 23 ml EF(Teich): 82 % %FS: 51 % SV(Teich): 106 ml LA Diam: 4.0 cm (2.7 - 3.8) RVIDd: 3.6 cm (< 3.3) LALs A4C: 4.9 cm LAAs A4C: 15.7 cm LAESV A-L A4C: 43 ml LAESV MOD A4C: 40 ml LALs A2C: 4.9 cm LAAs A2C: 17.3 cm LAESV A-L A2C: 52 ml LAESV MOD A2C: 50 ml LAESV(A-L): 47 ml LAESV Index (A-L): 21.03 ml/m Ao Diam: 3.0 cm (2.0 - 3.7) LA Diam: 4.2 cm (2.7 - 3.8) AV Cusp: 2.2 cm (1.5 - 2.6) EPSS: 0.6 cm MV E Volodymyr: 0.55 m/s MV DecT: 211 ms MV Dec Miner: 2.6 m/s MV A Volodymyr: 0.64 m/s MV E/A Ratio: 0.86 MV PHT: 61 ms TR Vmax: 1.81 m/s TR maxP.11 mmHg RAP: 5.00 mmHg RVSP: 18.11 mmHg MV EF SLOPE: 67.51 mm/s (70 - 150) MV EXCURSION: 13.54 mm (> 18.000) FINDINGS -------- Sinus rhythm. This was a technically good study. LV size, wall thickness and systolic function are normal, with an EF greater than 55%. The left george tricular size is normal. The right ventricle is normal in size. Normal LA size by volume 22+/-6 ml/m2. The right atrial size is normal. The aortic valve is trileaflet, and appears structurally normal. No aortic stenosis or regurgitation. Mild mitral regurgitation is present. Mild tricuspid regurgitation present. Right ventricular systolic pressure is normal at < 35 mmHg. There is no pulmonic regurgitation present. The aortic root size is normal. There is no pericardial effusion. CONCLUSIONS -------- 1. LV size, wall thickness and systolic function are normal, with an EF greater than 55%. 2. The left ventricular size is normal. 3. The right ventricle is normal in size. 4. Normal LA size by volume 22+/-6 ml/m2. 5. The right atrial size is normal. 6. The aortic valve is trileaflet, and appears structurally normal. No aortic stenosis or regurgitati on. 7. Mild mitral regurgitation is present. 8. Mild tricuspid regurgitation present. 9. There is no pulmonic regurgitation present. 10. The aortic root size is normal. 11. There is no pericardial effusion. RECREATION THERAPY AIDE: Anika Becker RDCS
[2021-09-05] MEDS: CALCIUM CARBONATE LIQUID 500 MG/5 ML CUP PO SCH (19:11)
[2021-09-06] MEDS: SODIUM CHLORIDE 0.45% 1,000 ML IV SCH (04:30)
[2021-09-06 08:05] VITALS: BP 132/83; PULSE 63; RESP 18; TEMP 98
[2021-09-06] MEDS: ASPIRIN 81 MG PO SCH (09:11)
[2021-09-06] MEDS: CALCIUM CARBONATE LIQUID 500 MG/5 ML CUP PO SCH (09:11)
[2021-09-06] MEDS: PANTOPRAZOLE 40 MG TABLET PO SCH (09:11)
--- NOTE | 2021-09-06 09:36 | P.CRDCN ---
History of Present Illness History of present illness: HISTORY OF PRESENT ILLNESS: This is a 61-year old male with a past medical history significant for DVT was taking Xarelto, peripheral vascular disease, factor V Leiden deficiency, hyperlipidemia, carotid artery stenosis, hypertension, arthritis. He follows with Dr. Lamas. We have been asked to see the patient in consultation for chest pain. Patient presented to the emergency department with complaints of chest pain. He states he has been having midsternal intermittent chest pressure. It is non-radiating, non-exertional. He states it comes and goes for the past 2 weeks regardless of activity. He also endorses abdominal pain and bloating after eating for 2 weeks. He denies any chest pain at this time. This morning he complains of right-sided neck pain describes as throbbing. He states it starts in his right clavicle area and goes up to the right side of his neck. He also states that a few days ago, he had some left axilla pain radiating to his left hand. He denies shortness of breath, nausea, diaphoresis, syncope or near- syncope, palpitations, symptoms of orthopnea PND. He denies history of coronary artery disease, [place], stroke, type 2 diabetes. He states he has been diagnosed with hypertension he took lisinopril 5 mg daily and he had hypotension so this medication was discontinued. He does have hyperlipidemia. Patient has tried to take statins in the past and had some adverse reaction, he thinks the medication was atorvastatin/Lipitor. he denies daily alcohol use or tobacco use. DIAGNOSTICS: EKG reveals sinus rhythm, heart rate 69, T wave inversion in lead III, prior EKG in 10/2020 with similar findings. Chest xray no acute cardiopulmonary process. Most recent stress test Lexiscan 06/2020 revealed no evidence of reversible ischemia. Echocardiogram 09/05/2021 revealed EF >55% percent without significant valvular disease Laboratory data: CBC unremarkable, d-dimer negative, troponin negative 3, triglycerides 201, cholesterol 262, LDL 83, HDL 37, sodium 139, potassium 4.2, BUN 16, serum creatinine 0.8, proBNP 23, triglycerides 201, cholesterol 262, LDL 183, HDL 37 Current home cardiac medications include aspirin 81 mg daily telemetry tracings indicate sinus mechanism, heart rate 5560s REVIEW OF SYSTEMS: At the time of my exam: CONSTITUTIONAL: Denies fever or chills. HEENT: Denies blurred vision, vision changes, or eye pain. Denies hemoptysis CARDIOVASCULAR: +chest pain, Denies orthopnea, PND or palpitations RESPIRATORY: No shortness of breath. GASTROINTESTINAL: + abdominal pain. +bloating Denies nausea or vomiting. NEURO: +numbness of left hand MUSCULOSKELETAL: +right sided neck pain +left axilla pain HEMATOLOGIC: Denies bleeding disorders. GENITOURINARY: Denies any blood in urine. SKIN: Denies pruitis. Denies rash. PHYSICAL EXAM: VITAL SIGNS: Reviewed. GENERAL: Well-developed in no acute distress. HEENT: Head is normocephalic. Pupils are equal, round. Sclerae anicteric. Mucous membranes of the mouth are moist. Neck supple. No JVD or thyromegaly LUNGS: Respirations even and unlabored. Lungs essentially clear to auscultation bilaterally. HEART: Regular rate and rhythm. S1 and S2 heard. ABDOMEN: Soft. Nondistended. Nontender. EXTREMITIES: Normal range of motion. No clubbing or cyanosis. Peripheral pulses intact. No lower extremity edema NEUROLOGIC: Awake and alert. Oriented x 3. ASSESSMENT: Chest pain, atypical, acute coronary syndrome has been ruled out, appears to be more of an inflammatory response Abdominal pain, bloating Right neck pain Hypertension Hyperlipidemia Carotid Stenosis History of DVT, was treated with Xarelto History of factor V Leiden deficiency History of arthritis PLAN: -Patient's chest pain, atypical, acute coronary syndrome has ruled out, EKG with no evidence of acute ischemia. Cardiac enzymes negative 3. Echocardiogram with normal LV systolic function, no significant wall motion abnormalities. -Check hemoglobin A1C, CRP and ESR -Recommend starting rosuvastatin 10 mg daily, patient is agreeable. -Continue aspirin 81 mg daily. -From cardiology perspective patient stable and discharged home. Recommended follow-up with Dr. Lamas in one week as an outpatient. Nurse practitioner note has been reviewed by physician. Signing provider agrees with the documented findings, assessment, and plan of care. Past Medical History Past Medical History: Deep Vein Thrombosis (DVT), Osteoarthritis (OA) Additional Past Medical History / Comment(s): Blood clots, factor 5 LEFT KIDNEY CYST AND HERNIA INGUINAL History of Any Multi-Drug Resistant Organisms: None Reported Past Surgical History: No Surgical Hx Reported Additional Past Surgical History / Comment(s): CYST REMOVED OFF TAILBONE Past Anesthesia/Blood Transfusion Reactions: No Reported Reaction Past Psychological History: No Psychological Hx Reported Smoking Status: Never smoker Past Alcohol Use History: None Reported Past Drug Use History: None Reported - Past Family History Mother Family Medical History: Cancer Additional Family Medical History / Comment(s): LUNG CANCER Father Family Medical History: Diabetes Mellitus Medications and Allergies Home Medications Medication Instructions Recorded Confirmed Type Aspirin 81 mg PO HS 11/14/20 09/04/21 History Rosuvastatin [Crestor] 10 mg PO DAILY 30 Days #30 tablet 09/06/21 Rx Allergies Allergy/AdvReac Type Severity Reaction Status Date / Time clindamycin Allergy Anaphylaxis Verified 09/04/21 18:17 apixaban [From Eliquis] AdvReac Dizziness Verified 09/04/21 18:17 rivaroxaban [From Xarelto] AdvReac Dizziness Verified 09/04/21 18:17 Physical Exam Vitals: Vital Signs Temp Pulse Pulse Resp BP BP Pulse Ox 09/05/21 07:00 97.7 F 59 L 16 130/76 99 09/05/21 02:00 97.6 F 60 16 105/57 98 09/05/21 01:54 76 09/04/21 20:00 98.4 F 76 17 143/70 97 09/04/21 19:56 18 09/04/21 17:21 18 09/04/21 17:00 18 09/04/21 16:57 97.8 F 73 18 146/91 95 Intake and Output 09/04/21 09/05/21 09/05/21 22:59 06:59 14:59 Intake Total 680 Balance 680 Intake: Oral 680 Other: Voiding Method Toilet # Voids 1 4 Results 09/04/21 10:51 09/04/21 10:51 Cardiac Enzymes 09/04/21 09/04/21 Range/Units 15:02 17:53 Troponin I <0.012 <0.012 (0.000-0.034) ng/mL Lipids 09/05/21 Range/Units 06:46 Triglycerides 201.00 H (0.00-149.00) mg/dL Cholesterol 262.00 H (0.00-200.00) mg/dL HDL Cholesterol 37.90 L (40.00-60.00) mg/dL Cholesterol/HDL Ratio 6.91 Ratio Current Medications Generic Name Dose Route Start Last Admin Trade Name Freq PRN Reason Stop Dose Admin Acetaminophen 500 mg 09/04/21 20:24 09/05/21 03:42 Acetaminophen Tab 500 Mg Tab PO 500 mg Q6HR PRN Administration Fever and/ or MILD Pain Aspirin 81 mg 09/05/21 09:00 09/05/21 08:56 Aspirin 81 Mg PO 81 mg DAILY OPAL Administration Calcium Carbonate/Glycine 1,000 mg 09/04/21 20:51 Calcium Carbonate 500 Mg Chewable PO Q4HR PRN Dyspepsia Sodium Chloride 1,000 mls @ 125 mls/hr 09/05/21 12:30 Saline 0.45% IV .Q8H OPAL Lactulose 20 gm 09/04/21 20:51 Lactulose 20 Gm/30 Ml Cup PO DAILY PRN Constipation Lorazepam 0.5 mg 09/04/21 20:51 Lorazepam 0.5 Mg Tab PO Q6HR PRN Anxiety Naloxone HCl 0.2 mg 09/04/21 20:51 Naloxone 0.4 Mg/Ml 1 Ml Vial IV Q2M PRN Opioid Reversal Nitroglycerin 0.4 mg 09/04/21 13:15 Nitroglycerin Sl Tabs 0.4 Mg Tab SUBLINGUAL Q5M PRN Chest Pain Ondansetron HCl 4 mg 09/04/21 20:51 Ondansetron 4 Mg/2 Ml Vial IVP Q8HR PRN Nausea And Vomiting Pantoprazole Sodium 40 mg 09/04/21 21:00 09/05/21 08:56 Pantoprazole 40 Mg Tablet PO 40 mg AC-BID OPAL Administration Temazepam 15 mg 09/04/21 20:51 Temazepam 15 Mg Cap PO HS PRN Insomnia Intake and Output 09/04/21 09/05/21 09/05/21 22:59 06:59 14:59 Intake Total 680 Balance 680 Intake: Oral 680 Other: Voiding Method Toilet # Voids 1 4 09/04/21 10:51 09/04/21 10:51
--- NOTE | 2021-09-06 16:53 | P.DS ---
Providers Date of admission: 09/04/21 13:15 Expected date of discharge: 09/06/21 Attending physician: Gianni Saxena Consults: 09/05/21 12:23 Consult Physician Routine Consulting Provider: Don Bird Consult Reason/Comments: chest pain Do you want consulting provider notified?: Yes Primary care physician: Adi Johnson [place] [facility] Course: Chief Complaint: Chest pain History of presenting complaint: This is a pleasant 61-year-old patient of Dr. Franklin Johnson. Chronic stable medical conditions include patient having a DVT in March 17./ takes xarelto. factor V Leyden mutation. Patient was here in June 2020. Nuclear stress test was negative for ischemia. Patient now presents with episodes of left-sided chest pain. Lasting for a few seconds. Could be addressed. He is also noticed some numbness of the left arm. Last night. No dizziness or lightheadedness. No shortness of breath. Patient also been bothered by reflux symptoms. We should be more so present the last 2 weeks. No precipitating or relieving factors. Patient otherwise rather active. Patient is seen by me in the ER. September 05: Patient having more epigastric discomfort. Some bloating. Some burping. On PPI. September 06: 2-D echocardiogram unremarkable. Seen by cardiology. Cleared for discharge. Doesn't addition felt to be noncardiac. Patient told to follow up with GI as outpatient with a view to EGD. Continue on Protonix. Discussed. Patient's free metanephrine levels were ordered. Results pending. To follow-up with his PCP. Computed tomography scan of the abdomen unremarkable for the same. Discussion and discharge planning more than 35 minutes Consultation: Dr. 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 . Family history: Reviewed, noncontributory to presentation Physical examination: VITAL SIGNS: 98, 63, 18, 132/83, 97% room air GENERAL: Sitting up, awake, comfortable EYES: Pupils equal. Conjunctiva normal. HEENT: External appearance of nose and ears normal, oral cavity grossly normal. NECK: JVD not raised; masses not palpable. HEART: First and second heart sounds are normal; no edema. LUNGS: Respiratory rate normal; clear to auscultation. ABDOMEN: Soft, mild epigastric tenderness no guarding rigidity, liver spleen not palpable, no masses palpable. PSYCH: Alert and oriented x3; mood and affect normal. INVESTIGATIONS, reviewed in the clinical context: 2-D echocardiogram: EF to 55%. Computed tomography scan of the abdomen with contrast: Unremarkable LDL 183 White count 5.4 hemoglobin 13.8 platelets 279 potassium 4.2 creatinine 0.87 Troponin I less than 0.0123 Coronavirus [PCR]: Not detected EKG tracing personally reviewed by me-normal sinus rhythm, rate 69 Chest x-ray film personally reviewed by me-no infiltrates Previous testing from June 2020 2-D echo-EF 55-60% Nuclear stress test-negative for ischemia Assessment and plan: -Anterior chest pain. Lasting only a few seconds. Left arm numbness. The baseline is patient rather active. Doubt cardiac. Enzymes are negative. No EKG changes.: Not felt to be cardiac. Cleared by cardiology -On last admission pheochromocytoma was considered posterity. Computed tomography scan of the abdomen unremarkable. Free metanephrines ordered. Results pending.: To be followed up by Dr. Johnson -Chronic DVT Xarelto -Factor V Leyden mutation On Xarelto -Exacerbation of GERD Protonic. Follow with Dr. Adilene Edwards outpatient Disposition: Home Plan - Discharge Summary Discharge Rx Participant: Yes New Discharge Prescriptions: New Rosuvastatin [Crestor] 10 mg PO DAILY 30 Days #30 tablet Pantoprazole [Protonix] 40 mg PO AC-BID #60 tab Continue Aspirin 81 mg PO HS Discharge Medication List Aspirin 81 mg PO HS 11/14/20 [History] Pantoprazole [Protonix] 40 mg PO AC-BID #60 tab 09/06/21 [Rx] Rosuvastatin [Crestor] 10 mg PO DAILY 30 Days #30 tablet 09/06/21 [Rx] Follow up Appointment(s)/Referral(s): Ez Lamas DO [STAFF PHYSICIAN] - 1 Week Oralia Edwards MD [STAFF PHYSICIAN] - 1 Week Adi Johnson MD [Primary Care Provider] - 1-2 days Discharge Disposition: HOME SELF-CARE
[2021-09-12 22:37] LABS: Metanephrine, Free <25 pg/mL (< OR = 57); Normetanephrine, Free 39 pg/mL (< OR = 148); Total, Free (MN + NMN) 39 pg/mL (< OR = 205)
== END 2021-09-06 11:50 | disposition home or self-care (01) ==
LOC: EC 10:09 → 6NMEDSUR 13:15
PROVIDERS: ADMIT Hospitalist; ATTEND Hospitalist
DX: R07.89 Other chest pain (principal); R20.0 Anesthesia of skin; D68.51 Activated protein C resistance; K21.9 Gastro-esophageal reflux disease without esophagitis; E78.5 Hyperlipidemia, unspecified; I65.29 Occlusion and stenosis of unspecified carotid artery; M19.90 Unspecified osteoarthritis, unspecified site; K40.90 Unilateral inguinal hernia, without obstruction or gangrene, not specified as recurrent; N28.1 Cyst of kidney, acquired; R14.0 Abdominal distension (gaseous); I10 Essential (primary) hypertension; I73.9 Peripheral vascular disease, unspecified; M54.2 Cervicalgia; R10.9 Unspecified abdominal pain; Z20.822 Contact with and (suspected) exposure to COVID-19; Z79.82 Long term (current) use of aspirin; Z88.1 Allergy status to other antibiotic agents; Z88.8 Allergy status to other drugs, medicaments and biological substances; Z86.718 Personal history of other venous thrombosis and embolism; Z98.890 Other specified postprocedural states; Z80.1 Family history of malignant neoplasm of trachea, bronchus and lung; Z83.3 Family history of diabetes mellitus; Z82.49 Family history of ischemic heart disease and other diseases of the circulatory system
CPT/HCPCS: 99285; 36415; 93005; 93306; 83835; 85379; 83880; 80061; 80053; 85652; 83690; 83735; 84484; 85025; 85610; 85730; 86140; 83036; 87635; 71046; 74160; G0378 ×3; Q9967

== ENCOUNTER 2024-10-12 12:58 | Emergency (ER) | payer OTHER ==
[2024-10-12 14:54] LABS: Basophils % (A) 0 %; Eosinophils # (A) 0.1 k/uL (0-0.7); Eosinophils % (A) 1 %; HCT 45.9 % (39.0-53.0); HGB 15.6 gm/dL (13.0-17.5); Lymphocytes % (A) 14 %; MCH 29.9 pg (25.0-35.0); MCHC 34.1 g/dL (31.0-37.0); MCV 87.7 fL (80.0-100.0); Mean Platelet Volume 6.8; Monocytes # (A) 0.5 k/uL (0-1.0); Monocytes % (A) 7 %; Neutrophils # (A) 5.5 k/uL (1.3-7.7); Neutrophils % (A) 77 %; Platelet Count 297 k/uL (150-450); RBC 5.23 m/uL (4.30-5.90); RDW 13.1 % (11.5-15.5); WBC 7.1 k/uL (3.8-10.6)
[2024-10-12 15:09] LABS: Partial Thromboplastin Time 25.7 sec (22.0-30.0); Prothrombin Time 10.7 sec (10.0-12.5)
[2024-10-12 15:13] LABS: ALT 25 U/L (4-49); AST 25 U/L (17-59); African American GFR (CKD) >90 (>60 ml/min/1.73 sqM); Albumin 4.8 g/dL (3.5-5.0); Alkaline Phosphatase 58 U/L (38-126); Anion Gap 8 mmol/L; Blood Urea Nitrogen 16 mg/dL (9-20); Calcium 10.8 mg/dL (8.4-10.2); Carbon Dioxide 23 mmol/L (22-30); Chloride 104 mmol/L (98-107); Glucose 94 mg/dL (74-99); Non-African American GFR(CKD) >90 (>60 ml/min/1.73 sqM); Sodium 135 mmol/L (137-145); Total Bilirubin 0.7 mg/dL (0.2-1.3); Total Protein 7.6 g/dL (6.3-8.2)
--- NOTE | 2024-10-12 16:28 | CT ---
EXAMINATION TYPE: CT angio head neck DATE OF EXAM: 10/12/2024 COMPARISON: None CLINICAL INDICATION: Male, 64 years old with history of facial numbness, neck pain, recent chiropract ic [place]; SHAGGY, Went to chiropractor for neck adjustment x 4 days ago, facial numbness and neck pain toda y TECHNIQUE: CTA scan of the head and neck is performed without and with IV Contrast, patient injected with 65 mL of Isovue 370, axial images are obtained, coronal and sagittal reformatted images are rev iewed. 3D reconstructed images are created on an independent workstation and reviewed. CT DLP: 1898.[address] CTDI: mGy Automated exposure control for dose reduction was used. NASCET criteria was used in interpretation of this exam? FINDINGS: FINDINGS: The brachiocephalic origins are widely patent and no significant stenosis. There is no significant stenosis of the common or internal carotid arteries within the neck. There is no stenosis of the vertebral arteries. Intracranially, there is no stenosis, segmental occlusion, sizable aneurysm sac or vascular malformat ion. IMPRESSION:. No significant abnormality seen. NASCET criteria was used in interpretation of this exam? [facility], , 10/12/2024 4:26 PM
--- NOTE | 2024-10-12 16:55 | ED ---
General Adult HPI - General Chief complaint: Neck Pain/Injury Stated complaint: pain in neck Time Seen by Provider: 10/12/24 13:58 Source: patient Mode of arrival: ambulatory Limitations: no limitations - History of Present Illness Initial comments: 64-year-old male presents emergency department with left-sided neck pain and numbness to the left side of his face. States that his symptoms have been going on for the past week. He does have tenderness to palpation of the left side of his neck and it also hurts with rotating his head. Patient also admits to a numbing sensation on the left side of his face including his forehead. Patient checked his blood pressure at home and found it to be high. Does admit to seeing chiropractor for his neck pain manipulation. He denies visual changes. No recent deficit. No numbness tingling or weakness in his arms or legs. No history of stroke. Denies headache. 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 Denies any additional symptoms to include chest pain, shortness of breath, abdominal pain. No other alleviating, precipitating or modifying factors - Related Data Home Medications Medication Instructions Recorded Confirmed Aspirin 81 mg PO HS 11/14/20 09/04/21 Previous Rx's Medication Instructions Recorded Pantoprazole [Protonix] 40 mg PO AC-BID #60 tab 09/06/21 Rosuvastatin [Crestor] 10 mg PO DAILY 30 Days #30 tablet 09/06/21 Allergies Allergy/AdvReac Type Severity Reaction Status Date / Time clindamycin Allergy Anaphylaxis Verified 10/12/24 13:01 apixaban [From Eliquis] AdvReac Dizziness Verified 10/12/24 13:01 rivaroxaban [From Xarelto] AdvReac Dizziness Verified 10/12/24 13:01 Review of Systems ROS Statement: Those systems with pertinent positive or pertinent negative responses have been documented in the HPI. ROS Other: All systems not noted in ROS Statement are negative. Past Medical History Past Medical History: Deep Vein Thrombosis (DVT), Osteoarthritis (OA) Additional Past Medical History / Comment(s): Blood clots, factor 5 LEFT KIDNEY CYST AND HERNIA INGUINAL History of Any Multi-Drug Resistant Organisms: None Reported Past Surgical History: No Surgical Hx Reported Additional Past Surgical History / Comment(s): CYST REMOVED OFF TAILBONE Past Anesthesia/Blood Transfusion Reactions: No Reported Reaction Past Psychological History: No Psychological Hx Reported Smoking Status: Never smoker Past Alcohol Use History: None Reported Past Drug Use History: None Reported - Past Family History Mother Family Medical History: Cancer Additional Family Medical History / Comment(s): LUNG CANCER Father Family Medical History: Diabetes Mellitus General Exam Limitations: no limitations General appearance: alert, in no apparent distress Head exam: Present: atraumatic, normocephalic, normal inspection Eye exam: Present: normal appearance, PERRL, EOMI. Absent: scleral icterus, conjunctival injection, periorbital swelling ENT exam: Present: normal exam, mucous membranes moist Neck exam: Present: normal inspection, tenderness (To palpation of the SCM on the left). Absent: meningismus, lymphadenopathy Respiratory exam: Present: normal lung sounds bilaterally. Absent: respiratory distress, wheezes, rales, rhonchi, stridor Cardiovascular Exam: Present: regular rate, normal rhythm, normal heart sounds. Absent: systolic murmur, diastolic murmur, rubs, gallop, clicks GI/Abdominal exam: Present: soft, normal bowel sounds. Absent: distended, tenderness, guarding, rebound, rigid Extremities exam: Present: normal inspection, full ROM, normal capillary refill. Absent: tenderness, pedal edema, joint swelling, calf tenderness Back exam: Present: normal inspection Neurological exam: Present: alert, oriented X3, CN II-XII intact Psychiatric exam: Present: normal affect, normal mood Skin exam: Present: warm, dry, intact, normal color. Absent: rash Course Vital Signs 10/12/24 10/12/24 10/12/24 12:59 14:00 14:01 Temperature 97.5 F L Pulse Rate 97 78 79 Respiratory 18 16 16 Rate Blood Pressure 161/99 150/97 135/88 O2 Sat by Pulse 98 97 97 Oximetry 10/12/24 10/12/24 10/12/24 14:30 15:00 15:30 Temperature Pulse Rate 78 71 70 Respiratory 17 10 L 12 Rate Blood Pressure 135/88 134/82 130/81 O2 Sat by Pulse Oximetry 10/12/24 10/12/24 16:00 17:23 Temperature 97.7 F Pulse Rate 74 Respiratory 16 Rate Blood Pressure 138/89 148/92 O2 Sat by Pulse 98 Oximetry Medical Decision Making - Medical Decision Making Was pt. sent in by a medical professional or institution (RAMSES Hernandez, CLINICAL INFORMATICS STRATEGIST, urgent care, hospital, or [facility]...) When possible be specific @ -No Did you speak to anyone other than the patient for history (EMS, parent, family, police, friend...)? What history was obtained from this source @ -No Did you review nursing and triage notes (agree or disagree)? Why? @ -I reviewed and agree with nursing and triage notes Were old charts reviewed (outside hosp., previous admission, EMS record, old EKG, old radiological studies, urgent care reports/EKG's, [facility] records)? Report findings @ -No old charts were reviewed Differential Diagnosis (chest pain, altered mental status, abdominal pain women, abdominal pain men, vaginal bleeding, weakness, fever, dyspnea, syncope, headache, dizziness, GI bleed, back pain, seizure, CVA, palpatations, mental health, musculoskeletal)? @ -Differential CVA Ischemic stroke, hemorrhagic stroke, brain tumor, atypical migraine, Wernicke's encephalopathy, seizure, multiple sclerosis, meningitis, encephalitis, hypoglycemia, Guillain-Alejo, electrolytes disturbance, myasthenia gravis.... This is not meant to be an all-inclusive list EKG interpreted by me (3pts min.). @ -Yes and demonstrates sinus rhythm with rate of 81. CT interval 173. QRS 96. QTc of 398. No acute ST segment elevations or depressions X-rays interpreted by me (1pt min.). @ -None done CT interpreted by me (1pt min.). @ -Yes which demonstrates no acute process U/S interpreted by me (1pt. min.). @ -None done What testing was considered but not performed or refused? (CT, X-rays, U/S, labs)? Why? @ -None What meds were considered but not given or refused? Why? @ -None Did you discuss the management of the patient with other professionals ( professionals i.e. RAMSES Hernandez, CLINICAL INFORMATICS STRATEGIST, lab, RT, psych nurse, director of social services, lieutenant shift supervisor, teacher, chief human resources officer, manager of case)? Give summary @ -No Was smoking cessation discussed for >3mins.? @ -No Was critical care preformed (if so, how long)? @ -No Were there social determinants of health that impacted care today? How? (Homelessness, low income, unemployed, alcoholism, drug addiction, transportation, low edu. Level, literacy, decrease access to med. care, correction, rehab)? @ -No Was there de-escalation of care discussed even if they declined (Discuss DNR or withdrawal of care, Hospice)? DNR status @ -No What co-morbidities impacted this encounter? (DM, HTN, Smoking, COPD, CAD, Cancer, CVA, ARF, Chemo, Hep., AIDS, mental health diagnosis, sleep apnea, morbid obesity)? @ -Factor V Was patient admitted / discharged? Hospital course, mention meds given and route, prescriptions, significant lab abnormalities, going to OR and other pertinent info. @ -Upon arrival patient seen and evaluated in room 21. Thorough history and physical exam was performed. IV access was established. Laboratory studies are conducted. CT angiography was performed due to his reported facial numbness with recent chiropractic manipulation. No signs of occlusion or dissection. Results are discussed with the patient. I do feel he is stable for discharge home. His blood pressure readings are within normal limits he is informed of this. He will be discharged and instructed to follow-up with primary care doctor. Return for any new or worsening symptoms. Patient agreeable to plan was discharged in stable condition Undiagnosed new problem with uncertain prognosis? @ -Yes Drug Therapy requiring intensive monitoring for toxicity (Heparin, Nitro, Insulin, Cardizem)? @ -No Were any procedures done? @ -No Diagnosis/symptom? @ -Acute left neck pain, paresthesia left face Acute, or Chronic, or Acute on Chronic? @ -Acute Uncomplicated (without systemic symptoms) or Complicated (systemic symptoms)? @ -Complicated Side effects of treatment? @ -No Exacerbation, Progression, or Severe Exacerbation? @ -No Poses a threat to life or bodily function? How? (Chest pain, [place], [place], pneumonia, PE, COPD, DKA, ARF, appy, cholecystitis, CVA, Diverticulitis, Homicidal, Suicidal, threat to staff... and all critical care pts) @ -No - Lab Data Result diagrams: 10/12/24 14:32 10/12/24 14:32 Lab Results 10/12/24 10/12/24 10/12/24 Range/Units 14:32 14:32 14:32 WBC 7.1 (3.8-10.6) k/uL RBC 5.23 (4.30-5.90) m/uL Hgb 15.6 (13.0-17.5) gm/dL Hct 45.9 (39.0-53.0) % MCV 87.7 (80.0-100.0) fL MCH 29.9 (25.0-35.0) pg MCHC 34.1 (31.0-37.0) g/dL RDW 13.1 (11.5-15.5) % Plt Count 297 (150-450) k/uL MPV 6.8 Neutrophils % 77 % Lymphocytes % 14 % Monocytes % 7 % Eosinophils % 1 % Basophils % 0 % Neutrophils # 5.5 (1.3-7.7) k/uL Lymphocytes # 1.0 (1.0-4.8) k/uL Monocytes # 0.5 (0-1.0) k/uL Eosinophils # 0.1 (0-0.7) k/uL Basophils # 0.0 (0-0.2) k/uL PT 10.7 (10.0-12.5) sec INR 1.0 (<1.2) APTT 25.7 (22.0-30.0) sec Sodium 135 L (137-145) mmol/L Potassium 5.0 (3.5-5.1) mmol/L Chloride 104 (98-107) mmol/L Carbon Dioxide 23 (22-30) mmol/L Anion Gap 8 mmol/L BUN 16 (9-20) mg/dL Creatinine 0.85 (0.66-1.25) mg/dL Est GFR (CKD-EPI)AfAm >90 (>60 ml/min/1.73 sqM) Est GFR (CKD-EPI)NonAf >90 (>60 ml/min/1.73 sqM) Glucose 94 (74-99) mg/dL Calcium 10.8 H (8.4-10.2) mg/dL Total Bilirubin 0.7 (0.2-1.3) mg/dL AST 25 (17-59) U/L ALT 25 (4-49) U/L Alkaline Phosphatase 58 (38-126) U/L Troponin I (0.000-0.034) ng/mL Total Protein 7.6 (6.3-8.2) g/dL Albumin 4.8 (3.5-5.0) g/dL 10/12/24 Range/Units 14:32 WBC (3.8-10.6) k/uL RBC (4.30-5.90) m/uL Hgb (13.0-17.5) gm/dL Hct (39.0-53.0) % MCV (80.0-100.0) fL MCH (25.0-35.0) pg MCHC (31.0-37.0) g/dL RDW (11.5-15.5) % Plt Count (150-450) k/uL MPV Neutrophils % % Lymphocytes % % Monocytes % % Eosinophils % % Basophils % % Neutrophils # (1.3-7.7) k/uL Lymphocytes # (1.0-4.8) k/uL Monocytes # (0-1.0) k/uL Eosinophils # (0-0.7) k/uL Basophils # (0-0.2) k/uL PT (10.0-12.5) sec INR (<1.2) APTT (22.0-30.0) sec Sodium (137-145) mmol/L Potassium (3.5-5.1) mmol/L Chloride (98-107) mmol/L Carbon Dioxide (22-30) mmol/L Anion Gap mmol/L BUN (9-20) mg/dL Creatinine (0.66-1.25) mg/dL Est GFR (CKD-EPI)AfAm (>60 ml/min/1.73 sqM) Est GFR (CKD-EPI)NonAf (>60 ml/min/1.73 sqM) Glucose (74-99) mg/dL Calcium (8.4-10.2) mg/dL Total Bilirubin (0.2-1.3) mg/dL AST (17-59) U/L ALT (4-49) U/L Alkaline Phosphatase (38-126) U/L Troponin I <0.012 (0.000-0.034) ng/mL Total Protein (6.3-8.2) g/dL Albumin (3.5-5.0) g/dL Disposition Clinical Impression: Neck pain Disposition: HOME SELF-CARE Condition: Stable Instructions (If sedation given, give patient instructions): Acute Neck Pain (ED) Additional Instructions: Monitor your blood pressure 2-3 times a day. Keep a log. Follow-up with your primary care doctor within 2 to 4 days for re-evaluation of your symptoms. Take your log with you to that appointme nt. Return for any new or worsening symptoms Is patient prescribed a controlled substance at d/c from ED?: No Referrals: Adi Johnson MD [Primary Care Provider] - 1-2 days Time of Disposition: 16:55
[2024-10-12] MEDS: CYCLOBENZAPRINE 10MG STARTER 3 TAB BTL PO STA (17:20)
[2024-10-12 17:25] VITALS: BP 148/92; PULSE 74; RESP 16; TEMP 97.7
== END 2024-10-12 17:28 | disposition home or self-care (01) ==
LOC: EC 12:58
DX: M54.2 Cervicalgia (principal); R20.2 Paresthesia of skin; Z88.8 Allergy status to other drugs, medicaments and biological substances
CPT/HCPCS: 36415; 93005; 80053; 84484; 85025; 85610; 85730; 70496; 70498; 99284; Q9967